=== PATIENT | male | born 1945 | race African-American/Black ===

== ENCOUNTER 2018-04-03 13:25 | Inpatient (IN) | payer MEDICARE, MEDICAID ==
[2018-04-03] MEDS ORDERED: Piperacillin/Tazobactam 4.5 GM VIAL ONE (13:52)
[2018-04-03] MEDS ORDERED: Ondansetron PF 4 MG/2 ML Vial ONE ×2 (14:02→16:52)
--- NOTE | 2018-04-03 14:29 | RAD ---
AP CHEST: History: Syncope. Date: 04-03-18 Comparison: 11-28-17 FINDINGS: AP chest obtained. There is ectasia of the aorta. The lungs are well aerated. No evidence of acute intrathoracic abnorma lity seen. No evidence of effusions seen. IMPRESSION: Unremarkable AP view chest. POS: [facility]
[2018-04-03 14:41] LABS: #Basophils 0.1 thou/uL (0.0-0.2); #Lymphocytes 1.3 thou/uL (1.20-3.40); #Monocytes 1.3 thou/uL (0.11-0.59); #Neutrophils 15.1 thou/uL (1.40-6.50); %Basophils 0.5 % (0.0-1.0); %Eosinophils 0.2 % (0.0-10.0); %Lymphocytes 7.4 % (21.0-51.0); %Monocytes 7.3 % (0.0-10.0); %Neutrophils 84.6 % (42.0-75.0); Hemoglobin 11.6 g/dL (14.0-18.0); Mean Corpuscular HGB CONC 30.7 g/dL (32.0-36.0); Mean Corpuscular Hemoglobin 29.5 pg (27.0-31.0); Mean Corpuscular Volume 96.1 fL (78.0-98.0); Mean Platelet Volume 7.7 fL (7.4-10.4); Platelet Count 283 thou/uL (130-400); Red Blood Cell (RBC) Count 3.92 mill/uL (4.70-6.10); White Blood Cell (WBC) Count 17.8 thou/uL (4.8-10.8)
[2018-04-03 15:01] LABS: Bilirubin Small (Negative); Blood, Urine Large (Negative); Clarity TURBID (Clear); Glucose, Urine (Dipstick) Negative (Negative); Leukocyte Large (Negative); Nitrite Negative (Negative); Protein, Urine (Dipstick) 100 mg/dL (Neg-Trace); Specific Gravity, Urine 1.014 (1.002-1.036); Urobilinogen 0.2 mg/dL (0.2-1.0)
[2018-04-03 15:03] LABS: Bacteria/HPF 4+ HPF (None Seen)
[2018-04-03 15:05] LABS: Pathc Cast-AUWi Flag 28.24 (0-2.49); Yeast-AUWi Flag 449.3 (0-25.0)
[2018-04-03 15:14] LABS: ALT (SGPT) 8 U/L (8-55); AST (SGOT) 19 U/L (5-34); Albumin 2.2 g/dL (3.4-4.8); Alkaline Phosphatase 142 U/L (40-150); Anion Gap 24 mmol/L (10-20); BUN (Urea Nitrogen) 108 mg/dL (8.4-25.7); Bilirubin, Total 0.4 mg/dL (0.2-1.2); Calc. Creatinine Clearance 0 mL/min (70-130); Calcium 8.4 mg/dL (7.8-10.44); Carbon Dioxide 13 mmol/L (23-31); Chloride 97 mmol/L (98-107); Estimated GFR-MDRD 8; Globulin 4.7 g/dL (2.4-3.5); Glucose 106 mg/dL (83-110); Potassium 5.3 mmol/L (3.5-5.1); Protein, Total 6.9 g/dL (5.8-8.1); Sodium 129 mmol/L (136-145)
[2018-04-03 15:16] LABS: Hyaline Casts/LPF NONE SEEN LPF (0-3 Hyaline); Other Casts/LPF None Seen LPF (0-3 Hyaline)
[2018-04-03 15:17] LABS: Yeast-All Forms None Seen HPF (None Seen)
--- NOTE | 2018-04-03 17:22 | RAD ---
PORTABLE SUPINE FRONTAL CHEST RADIOGRAPH 04/03/18 COMPARISON: Prior study on same day. HISTORY: Evaluate chest following central line placement. FINDINGS: Supine imaging is provided, limiting assessment for pneumothorax and pleural fluid. Heart and mediast inal contours are stable. As seen on prior imaging, the descending thoracic aorta is prominent. There is a left sided vascular catheter, distal tip overlying the region of the SVC. No focal consolidati on or alveolar edema. IMPRESSION: Central line in place. Stable heart and mediastinal contours. POS: [facility]
[2018-04-03] MEDS ORDERED: Vancomycin HCl 25 MG/ML Oral PO SCH (19:00)
[2018-04-03 19:06] LABS: Lactic Acid 4.1 mmol/L (0.5-2.2)
--- NOTE | 2018-04-03 20:35 | CT ---
NONCONTRAST ENHANCED CT IMAGES OF ABDOMEN AND PELVIS 04/03/18 HISTORY: Patient with nausea, vomiting. Unable to tolerate oral contrast. Evaluate abscess or perforation. Noncontrast enhanced CT images of the abdomen and pelvis is obtained. The lung bases are unremarkable. The patient has a left sided colostomy. Extensive decubitus ulcer changes seen with a defect posterior to the sacrum and coccyx with gas trac viridiana along the posterior aspect more prominent on the right. The liver and spleen are unremarkable. Pancreas unremarkable. The gallbladder has been surgically rem karine. Right adrenal lesion is seen possibly representing a mass or whether this is an adenoma or meta static disease I cannot determine on this noncontrast enhanced CT. The kidneys demonstrate no eviden ce of hydronephrosis. Mid pole right renal calculus is present. Areas of heterogeneous density seen in the infrarenal abdominal aorta possibly representing aortic di ssection, unable to be evaluated without benefit of intravenous contrast. No evidence of periaortic inflammatory change seen. No evidence of periaortic hemorrhage seen at this time. I cannot exclude occlusion of the iliac arteries and aorta. No dilated loops of small bowel or colon seen. IMPRESSION: 1. Extensive decubitus ulcer with soft tissue defect posterior to the sacrum and coccyx. 2. Findings concerning for aortic dissection. Unable to be evaluated without IV contrast. POS: [facility]
[2018-04-03] MEDS ORDERED: Sodium Chloride 0.9% 1,000 ML IV SCH ×2 (22:45)
[2018-04-03 23:46] LABS: Anion Gap 20 mmol/L (10-20); BUN (Urea Nitrogen) 92 mg/dL (8.4-25.7); CRP (Inflammatory) 14.04 mg/dL (= or < 0.5); Calc. Creatinine Clearance 14 mL/min (70-130); Calcium 7.5 mg/dL (7.8-10.44); Carbon Dioxide 17 mmol/L (23-31); Chloride 101 mmol/L (98-107); Estimated GFR-MDRD 10; Glucose 78 mg/dL (83-110); Potassium 4.5 mmol/L (3.5-5.1); Sodium 133 mmol/L (136-145)
[2018-04-04] MEDS ORDERED: Sodium Chloride 0.9% 500 ML IV SCH ×2 (01:15→14:15)
[2018-04-04] MEDS: Sodium Bicarbonate 50 MEQ in Dextrose 5 %-0.45 % NaCl 1,000 ML IV SCH ×2 (01:56→10:25)
[2018-04-04] MEDS ORDERED: VANCOMYCIN/ RENALLY ADJUST ANTIBIOTICS IVPB PRN (02:02)
[2018-04-04] MEDS ORDERED: RENALLY ADJUST ANTIBIOTICS IVPB PRN (02:03)
[2018-04-04] MEDS ORDERED: Ondansetron PF 4 MG/2 ML Vial IVP PRN (02:04)
[2018-04-04] MEDS ORDERED: Ondansetron ODT 4 MG TAB PO PRN (02:04)
[2018-04-04] MEDS ORDERED: Piperacillin/Tazobactam 3.375 GM in Sodium Chloride 0.9% 100 ML IVPB SCH (02:15)
[2018-04-04] MEDS: cefTRIAXone\\ROCEPHIN 1 GM in Sodium Chloride 0.9% 100 ML IVPB SCH (02:58)
--- NOTE | 2018-04-04 03:13 | HP ---
PRIMARY CARE DOCTOR: Dr. Ngo. CHIEF CONCERN: Nausea, vomiting with generalized weakness. HISTORY OF PRESENT ILLNESS: The patient is a 72-year-old male with chronic deconditioning, sacral ulcers, hypertension, and colostomy was brought in by EMS due to above complaints. The patient chronic pressure ulcer over the sacrum , which is followed by wound care at home. He also has wound VAC at home. He had abdominal surgery in [place], [place] and has a colostomy. He is unable to provide further details. He has not been eating and drinking well over the last few months. He denies increased output through the colostomy bag. No fever or chills reported. He has several episodes of vomiting and felt generally weak for which EMS was called. In the emergency room, his stool was positive for C diff. He was started on oral vancomycin. His blood pressure per EMS was 67/40. The home health care reported EMS that he had dark emesis. His workup in the emergency room showed acute kidney injury with lactic acidosis. Initial vital signs showed temperature 98.5, respirations 16, pulse of 93 with a blood pressure of 93/70 with O2 saturation of 100% on room air. He received vancomycin and Zosyn in the emergency room. Blood cultures was sent. PAST MEDICAL HISTORY: 1. Hypertension. 2. Chronic bedridden status. The patient is however able to sit on a wheelchair. He also gets physical therapy at home per patient report. 3. Hypertension. 4. Status post colostomy. 5. Degenerative joint disease. 6. Benign prostatic hypertrophy. 7. Obesity. 8. Decubitus ulcer. PAST SURGICAL HISTORY: 1. Laparoscopic cholecystectomy for gallstone pancreatitis. 2. Colostomy. ALLERGIES: NO KNOWN DRUG ALLERGIES. CURRENT HOME MEDICATIONS: The patient is unable to recall any of his home medication. We will try to obtain from the family. SOCIAL HISTORY: The patient currently lives at home. He has home health care. He is a former smoker. He quit smoking last year. No drug use reported. He makes his own decision with the help of his family. He is full code. FAMILY HISTORY: Negative for any inheritable diseases. REVIEW OF SYSTEMS: All other review of systems was reviewed and were found. PHYSICAL EXAMINATION: VITAL SIGNS: As discussed above. GENERAL: A 72-year-old male, in no apparent distress. Feels slightly better with IV fluids. HEENT: Head atraumatic, normocephalic. Sclerae anicteric. Dry mucous membranes. No oral lesion. NECK: Supple. No JVD appreciated. Central line noted. LUNGS: Showed diminished air entry at bilateral bases with few rales at bases. No significant wheezing or rhonchi noted. HEART: S1 and S2 present. Regular rate and rhythm 2/6 systolic murmur over the mitral area. ABDOMEN: Soft. Colostomy noted. Bowel sounds present. No rebound or guarding. No costovertebral angle tenderness. EXTREMITIES: 1+ edema in bilateral lower extremity. No calf tenderness. SKIN: Warm and dry. Approximately 8 x 8 cm deep pressure ulcer over the sacrum region. LYMPH NODE: No palpable lymph nodes in the neck. NEUROLOGY: As discussed above. PSYCHIATRY: Alert, awake, and oriented x3. LABORATORY FINDINGS: WBC 17.8 with hemoglobin 11.6, hematocrit 37.7 with platelet 283. Chemistry showed sodium 129, potassium 5.3, chloride 97, bicarb 13, BUN 108, creatinine 7.9. Lactic acid 5.5. CRP 14.4, cortisol was normal. Albumin 2.2. Urinalysis showed greater than 50 wbc's with 4+ bacteria. IMAGIN. EKG by my review showed sinus rhythm with lot of artifact. 2. CT scan of the abdomen and pelvis showed extensive decubitus ulcer with questionable aortic dissection. Please note that the CT scan was done without contrast due to acute kidney injury. 3. Chest x-ray by my review was negative for infiltrate. IMPRESSION: 1. Sepsis with acute organ dysfunction. 2. Clostridium difficile colitis. Urinary tract infection. 3. Physical deconditioning. 4. Benign prostatic hypertrophy. 5. Moderate protein-calorie malnutrition. 6. Metabolic acidosis secondary to renal failure. 7. Acute kidney injury secondary to dehydration and poor oral intake. 8. Lactic acidosis. 9. Elevated inflammatory markers. 10. Multiple electrolyte abnormalities including hyponatremia, hyperkalemia secondary to renal failure. 11. Chronic anemia. 12. Obesity with a body mass index of 31.4. 13. Concern for aortic dissection. Please note, the patient had a CT scan in November of this year that was positive for aortic dissection dissection. He was transferred to [facility]. PLAN: 1. The patient will be monitored on the telemetry unit. 2. We will continue IV hydration. 3. We will add bicarbonate to IV fluids. 4. We will get ultrasound of the aorta. We will hold antiplatelet/ anticoagulants. 5. Recheck labs in a.m. 6. We will repeat lactic acid in a.m. 7. Hold nephrotoxic medications. 8. Continue oral vancomycin. 9. Continue empiric antibiotics. 10. Await cultures. 11. Plan was discussed with the patient, he stated understanding. Job ID: [id number] MTDD
[2018-04-04] MEDS: Vancomycin HCl 25 MG/ML Oral PO SCH ×4 (03:30→19:36)
[2018-04-04] MEDS: metroNIDAZOLE 500 MG in Premix Bag 1 BAG IVPB SCH ×3 (05:54→22:50)
[2018-04-04 06:31] LABS: #Lymphocytes 1.5 thou/uL (1.20-3.40); #Monocytes 1.4 thou/uL (0.11-0.59); #Neutrophils 11.4 thou/uL (1.40-6.50); %Basophils 0.2 % (0.0-1.0); %Eosinophils 0.2 % (0.0-10.0); %Lymphocytes 10.6 % (21.0-51.0); %Monocytes 9.6 % (0.0-10.0); %Neutrophils 79.5 % (42.0-75.0); Hemoglobin 9.7 g/dL (14.0-18.0); Mean Corpuscular HGB CONC 30.1 g/dL (32.0-36.0); Mean Corpuscular Hemoglobin 29.3 pg (27.0-31.0); Mean Corpuscular Volume 97.4 fL (78.0-98.0); Mean Platelet Volume 7.7 fL (7.4-10.4); Platelet Count 221 thou/uL (130-400); RBC Distribution Width 16.9 % (11.5-14.5); Red Blood Cell (RBC) Count 3.29 mill/uL (4.70-6.10); White Blood Cell (WBC) Count 14.3 thou/uL (4.8-10.8)
[2018-04-04 06:50] LABS: Lactic Acid 2.5 mmol/L (0.5-2.2)
[2018-04-04 06:54] LABS: Anion Gap 17 mmol/L (10-20); BUN (Urea Nitrogen) 87 mg/dL (8.4-25.7); Calc. Creatinine Clearance 16 mL/min (70-130); Carbon Dioxide 17 mmol/L (23-31); Chloride 106 mmol/L (98-107); Estimated GFR-MDRD 11; Glucose 77 mg/dL (83-110); Potassium 4.6 mmol/L (3.5-5.1); Sodium 135 mmol/L (136-145)
[2018-04-04 07:29] LABS: Folate (Folic Acid) 7.8 ng/mL (7.0-31.4)
--- NOTE | 2018-04-04 08:06 | ULT ---
ABDOMINAL AORTIC ULTRASOUND: HISTORY: Followup aortic dissection on noncontrast CT scan, 04/03/2018. COMPARISON: Aortic dissection protocol, 11/28/2017. FINDINGS: The abdominal aortic dissection is demonstrated on ultrasound with flow in both primary and secondary lumens. Maximal outer of diameter 2.9 cm. The dissection appears to extend into the proximal left common iliac artery. Much of the abdomen is obscured by gas. No abscess or abnormal fluid collectio n. IMPRESSION: Redemonstration of abdominal aortic dissection. No significant change from prior 11/28/2017 CT angio. POS: [facility]
[2018-04-04] MEDS ORDERED: Sodium Bicarbonate 50 MEQ in Dextrose 5 %-0.45 % NaCl 1,000 ML IV SCH (09:15)
[2018-04-04] MEDS: Folic Acid 1 MG TAB PO SCH (10:21)
[2018-04-04] MEDS: Famotidine 20 MG TAB PO SCH (10:21)
[2018-04-04] MEDS: Saccharomyces boulardii 250 MG CAP PO SCH (10:21)
[2018-04-04] MEDS: Multivit, Therapeutic 1 TAB PO SCH (10:50)
--- NOTE | 2018-04-04 14:57 | PDOC.PN ---
- Subjective Encounter Start Date: 04/04/18 Encounter Start Time: 09:00 Subjective: pt up in bed no complains - Objective Resuscitation Status - Order Detail: 04/04/18 02:04 Resuscitation Status Routine Resuscitation Status: FULL: Full Resuscitation Vital Signs & Weight: Vital Signs (12 hours) Temp Pulse Pulse Pulse Pulse Resp BP 04/04/18 14:20 97.4 F L 111 H 22 H 04/04/18 13:45 77 80 76 102/46 L 04/04/18 11:20 98 20 04/04/18 10:55 98.9 F 101 H 20 04/04/18 08:17 84 77 85/51 L 04/04/18 08:05 97.6 F 81 18 04/04/18 03:14 80 18 BP BP BP Pulse Ox 04/04/18 14:20 74/35 L 95 04/04/18 13:45 97/51 L 74/35 L 04/04/18 11:20 102/45 L 95 04/04/18 10:55 99/52 L 99 04/04/18 08:17 89/51 L 04/04/18 08:05 82/45 L 95 04/04/18 03:14 86/48 L 97 Weight Weight 225 lb 1.6 oz I&O: 04/03/18 04/04/18 04/05/18 06:59 06:59 06:59 Intake Total 2550 Output Total 250 Balance 2300 Result Diagrams: 04/04/18 05:20 04/04/18 05:20 Additional Labs: Accuchecks 04/04/18 10:52 POC Glucose 88 Phys Exam - Physical Examination Respiratory: no wheezing, no rales, no rhonchi, wheezing present, clear to auscultation bilateral Cardiovascular: RRR, no significant murmur, no rub, gallop, irregular Gastrointestinal: soft, positive bowel sounds colostomy Dx/Plan (1) Clostridium difficile infection Code(s): A49.8 - OTHER BACTERIAL INFECTIONS OF UNSPECIFIED SITE Status: Acute (2) UTI (urinary tract infection) Status: Acute (3) USHA (acute kidney injury) Code(s): N17.9 - ACUTE KIDNEY FAILURE, UNSPECIFIED Status: Acute (4) Metabolic acidosis Code(s): E87.2 - ACIDOSIS Status: Acute (5) Aortic dissection Code(s): I71.00 - DISSECTION OF UNSPECIFIED SITE OF AORTA Status: Acute - Plan pt received 3L of fluids still has hypotension -: will add solucortef and continue iv abx and po vanco -: pt's output from colostomy is not much -: creatinine improving with hydration -: spoke with pulmonary for ccu transfer and nephrology for usha * . also spoke with CV surgery since family unaware if pt got surgery for his aortic dissection. unable to do ct with contrast due to usha. code status discussed with pt he wants to be full code for now. pt has a large sacral wound and has a vac. Review of Systems - Review of Systems Respiratory: negative: Cough, Dry, Shortness of Breath, Hemoptysis, SOB with Excertion, Pleuritic Pain, Sputum, Wheezing Cardiovascular: negative: chest pain, palpitations, orthopnea, paroxysmal nocturnal dyspnea, edema, light headedness, other Gastrointestinal: negative: Nausea, Vomiting, Abdominal Pain, Diarrhea, Constipation, Melena, Hematochezia, Other - Medications/Allergies Allergies/Adverse Reactions: Allergies Allergy/AdvReac Type Severity Reaction Status Date / Time No Known Drug Allergies Allergy Verified 10/02/13 02:54 Medications: Current Medications Acetaminophen (Tylenol) 650 mg PO Q4H PRN PRN Reason: Headache/Fever/Mild Pain (1-3) Famotidine (Pepcid) 20 mg PO QAM [facility] Last Admin: 04/04/18 10:21 Dose: 20 mg Folic Acid (Folvite) 1 mg PO DAILY [facility] Last Admin: 04/04/18 10:21 Dose: 1 mg Hydrocortisone Sodium Succinate (Solu-Cortef) 100 mg IVP Q6H [facility] Vancomycin HCl 1 gm/ Device 200 mls @ 200 mls/hr IVPB .PENDING LEVEL@1600 [facility] Metronidazole 500 mg/ Device 100 mls @ 100 mls/hr IVPB Q8HR [facility] Last Admin: 04/04/18 13:47 Dose: 100 mls Ceftriaxone Sodium 1 gm/ (Sodium Chloride) 100 mls @ 200 mls/hr IVPB Q24HR [facility] Last Admin: 04/04/18 02:58 Dose: 100 mls Sodium Bicarbonate 50 meq/ (Dextrose/Sodium Chloride) 1,100 mls @ 150 mls/hr IV .Q7H20M [facility] Last Admin: 04/04/18 10:25 Dose: 1,100 mls Miscellaneous Medication (Pharmacy To Dose) 1 each IVPB PRN PRN PRN Reason: Pharmacy to dose Miscellaneous Medication (Pharmacy To Dose) 1 each IVPB PRN PRN PRN Reason: Pharmacy to dose Multivitamins (Theragran) 1 tab PO DAILY [facility] Last Admin: 04/04/18 10:50 Dose: 1 tab Ondansetron HCl (Zofran Odt) 4 mg PO Q6H PRN PRN Reason: Nausea/Vomiting Last Admin: 04/04/18 10:50 Dose: 4 mg Ondansetron HCl (Zofran) 4 mg IVP Q6H PRN PRN Reason: Nausea/Vomiting Saccharomyces Boulardii (Florastor) 250 mg PO DAILY [facility] Last Admin: 04/04/18 10:21 Dose: 250 mg Sodium Chloride (Flush - Normal Saline) 10 ml IVF Q12HR [facility] Last Admin: 04/04/18 10:22 Dose: 10 ml Sodium Chloride (Flush - Normal Saline) 10 ml IVF PRN PRN PRN Reason: Saline Flush Thiamine HCl (Thiamine) 100 mg PO DAILY [facility] Last Admin: 04/04/18 10:21 Dose: 100 mg Vancomycin HCl (First Vancomycin) 250 mg PO Q6H [facility]
[2018-04-04] MEDS: Hydrocortisone Sod Succ/PF 100 mg/2 ml Vial IVP SCH ×2 (15:10→20:37)
--- NOTE | 2018-04-04 15:48 | CON ---
DATE OF CONSULTATION: 04/04/2018 REASON FOR CONSULTATION: Nausea, vomiting, and Clostridium difficile. HISTORY OF PRESENT ILLNESS: Jayson Christianson is a 72-year-old gentleman, who was admitted to the hospital yesterday with acute kidney injury and sepsis. He has a history of chronic deconditioning and sacral ulcers as well as chronic aortic dissection evidently in [place] 3 months ago. He underwent colostomy to divert the fecal stream away from his sacral decubitus ulcers. He says that really ever since that time, he has not been eating or drinking well. He has chronic nausea and fairly frequent episodes of vomiting. He really does not have any increased output through the colostomy bag or any significant abdominal pain other than the vomiting itself. Upon presentation, he was found to be hypotensive with a lactic acidosis and acute kidney injury. He started receiving broad-spectrum antibiotics. At this point, urine cultures are growing gram-negative rods. Blood cultures showed no growth to date, and stool studies showed positive C difficile antigen and toxin. PAST MEDICAL HISTORY: 1. Hypertension. 2. Chronic deconditioning. 3. Sacral decubitus ulcers. 4. Colostomy performed in December 2017 in [place], to divert fecal stream from decubitus ulcers. 5. Degenerative joint disease. 6. BPH. 7. Obesity. 8. Laparoscopic cholecystectomy. ALLERGIES: NO KNOWN DRUG ALLERGIES. HOME MEDICATIONS: Unknown. Inpatient medications; 1. IV ceftriaxone. 2. IV metronidazole. 3. Zofran p.r.n. 4. IV vancomycin, vancomycin 125 mg p.o. every 6 hours. SOCIAL HISTORY: The patient lives at home with Home Health care. He is a former smoker having quit last year. No drug use. FAMILY HISTORY: Noncontributory. REVIEW OF SYSTEMS: Full review of systems including constitutional, head, eyes, ears, nose, throat, GI, , cardiovascular, respiratory, musculoskeletal, neurologic systems is negative except as noted in the HPI. PHYSICAL EXAMINATION: VITAL SIGNS: Temperature 97.5, blood pressure 86/48, pulse 100, 97% oxygen saturation on room air. GENERAL: Chronically ill 72-year-old man, lying in bed comfortably, in no distress. SKIN: He is a bit pale. No jaundice. Sacral decubitus ulcers are well documented elsewhere and I did not examine those today. EYES: No scleral icterus. Extraocular movements intact. ENT: Mucous membranes are moist. No oral lesions. LYMPH: No submandibular or supraclavicular lymphadenopathy. THYROID: Nontender to palpation. HEART: Regular rate and rhythm. LUNGS: Clear to auscultation bilaterally. ABDOMEN: Soft. Bowel sounds are present. He has a left lower quadrant colostomy bag in place. The stool in the bag is liquid and normal brown appearing. Nontender to palpation. EXTREMITIES: Pretibial edema bilaterally. LABORATORY STUDIES: Hemoglobin 9.7, WBC 14.3, platelets 221. Sodium 135, potassium 4.6, BUN 87, creatinine 6.28. Lactic acid initially 4.1, now down to 2.5. Glucose 77, calcium 7.0, vitamin B12 is 921, folic acid 7.8, cortisol 16.9, CRP elevated to 14.04. Urinalysis shows greater than 50 wbc's. Urine culture growing gram-negative rods. Blood culture showed no growth to date. Influenza swab negative. Stool C difficile antigen and toxin both positive. IMAGING STUDIES: CT of the abdomen and pelvis demonstrates no dilated loops of small bowel or colon. He has a left-sided colostomy. Liver, spleen, and pancreas are unremarkable. Gallbladder removed. There is a right adrenal lesion. There is heterogeneous density in the infrarenal abdominal aorta representing aortic dissection. Aortic ultrasound from this morning demonstrates abdominal aortic dissection with no significant change from last November. ASSESSMENT AND PLAN: 1. Clostridium difficile colitis. The patient was started on oral vancomycin. Hopefully, he will be able to tolerate taking the medicine p.o. If he is not successful with this over the next day, then we would need to add vancomycin enemas given through his colostomy 4 times daily. Duration of treatment should be 14 days. I am not really sure we can blame the patient's overall septic picture on the C difficile, as the diarrhea portion of this has really been minimal. 2. Nausea and vomiting. 3. Acute kidney injury. 4. Urinary tract infection. The precise etiology of this nausea and vomiting are not exactly clear. He is quite ill from this urinary infection and acute kidney injury. Continue with supportive measures for now. If no improvement in the nausea over the next couple of days with antibiotics and supportive therapy, we could consider diagnostic EGD. Note that he had an essentially unremarkable EGD back in 2013, showing only some benign gastric polyps. Thank you for the consultation. Please call anytime with questions or concerns. Job ID: [id number]
[2018-04-04 16:23] LABS: Vancomycin, Random 8.6 ug/mL (See Comment)
[2018-04-04 16:25] LABS: Anion Gap 13 mmol/L (10-20); BUN (Urea Nitrogen) 82 mg/dL (8.4-25.7); Calc. Creatinine Clearance 18 mL/min (70-130); Calcium 7.2 mg/dL (7.8-10.44); Carbon Dioxide 21 mmol/L (23-31); Chloride 106 mmol/L (98-107); Estimated GFR-MDRD 13; Glucose 101 mg/dL (83-110); Potassium 3.8 mmol/L (3.5-5.1); Sodium 136 mmol/L (136-145)
--- NOTE | 2018-04-04 16:46 | CON ---
DATE OF CONSULTATION: 04/04/2018 CHIEF COMPLAINT: Nausea and vomiting. HISTORY OF PRESENT ILLNESS: The patient is a 72-year-old black man, admitted last night with nausea and vomiting. His systolic blood pressures were in the upper 60s in transport by EMS, but were in the 80 to 100 range in the emergency room. His stool is positive for C. difficile toxin and urine culture overnight has grown greater than 100,000 colony-forming units/mL of gram-negative bacillus. His blood cultures are no growth so far. His abdominal pain and nausea have resolved. His blood pressures are still running in the 80 to 100 range after having received about 2.5 L of IV fluid since arrival. I was asked by the hospitalist rounding on the patient today to address the issue of his aortic dissection, which he had in November of this past year, the management of which was handled at [facility] in [place]. PAST MEDICAL HISTORY: The patient's past medical history significant for hypertension. Based upon the absence of scars or radiopaque hardware, I am left to presume that he had medical management of his type 3 dissection and in speaking with the patient, he says that in December, he underwent creation of a left lower quadrant colostomy while in [place], which I presume represents a diverting colostomy to assist in the treatment of a sacral decubitus that he developed during his period of extreme deconditioning. MEDICATIONS: The patient's home medications are listed as; 1. Lopressor. 2. Norvasc. 3. Hydralazine. 4. Flomax. 5. Protonix. 6. Lasix. 7. Aspirin. He is currently on; 1. Rocephin. 2. Flagyl. 3. IV vancomycin and oral vancomycin. His antihypertensives are currently on hold. REVIEW OF SYSTEMS: Negative for any back pain. PHYSICAL EXAMINATION: GENERAL: He is an obese, debilitated appearing man, in no distress. VITAL SIGNS: Temperature is 98.9, heart rate is 101, blood pressure is 99/52, and room air O2 saturations are 99%. LUNGS: Clear breath sounds. HEART: Regular rate and rhythm. ABDOMEN: Soft and nontender. He has a left lower quadrant colostomy. He is difficult to appreciate radial pulses, but his femoral pulses are easily palpable. He has no scars on his left chest. LABORATORY DATA: His chest x-ray shows no radiopaque devices consistent with endovascular repair of his aorta. His CT scan does not show any hardware either, it is a noncontrasted CT. The suprarenal aorta is similar size as it was in November at around 3.2 or 3.3 cm at the level of the renals. It is probably a little bit larger now at around 3.9 cm as opposed to about 3.5 in November. IMPRESSION AND RECOMMENDATIONS: The patient is in acute renal failure, making the CT scan useless for evaluating for the patency of his false lumen. It is probably a moot point at this stage; however, there is no evidence of hemorrhage around the aorta. He is having no pain and his aortic size is far below, the threshold to warrant repair to avoid the risk of rupture due to aneurysmal dilatation. The mainstay of management of these patient is medical management. Obviously, his blood pressure now is probably lower than what it normally runs, but he seems to be tolerating it well. At this point, I do not think that there is any need to pursue this any further and we will defer his followup to his aortic team in [place]. Job ID: [id number]
[2018-04-04] MEDS ORDERED: Vancomycin HCl 1 GM in Premix Bag 1 BAG IVPB SCH (17:00)
[2018-04-04 18:00] LABS: Blood, Urine Large (Negative); Glucose, Urine (Dipstick) Negative (Negative); Leukocyte Moderate (Negative); Nitrite Positive (Negative); Protein, Urine (Dipstick) 30 mg/dL (Neg-Trace); Urobilinogen 0.2 mg/dL (0.2-1.0); pH, Urine 5.5 (5.0-9.0)
[2018-04-04 18:04] LABS: Clarity Opaque (Clear)
[2018-04-04 18:12] LABS: Bilirubin Negative (Negative); Specific Gravity, Urine 1.014 (1.002-1.036)
[2018-04-04 18:17] LABS: Bacteria/HPF 1+ HPF (None Seen); Crystals/HPF 1+ CA OXALATE HPF (Negative); Hyaline Casts/LPF NONE SEEN LPF (0-3 Hyaline); Squamous Epithelial None Seen HPF (0-3)
[2018-04-04] MEDS: Sodium Chloride 0.9% 1,000 ML IV SCH (19:34)
[2018-04-04] MEDS: Vancomycin HCl 1 GM in Premix Bag 1 BAG IVPB SCH (20:37)
--- NOTE | 2018-04-04 21:54 | CON ---
DATE OF CONSULTATION: 04/04/2018 TIME SPENT: This consult encompassed 70 minutes time, of that time, greater than 50% was spent with the patient and/or in the patient's unit in the hospital. REASON FOR CONSULTATION: Low blood pressure. HISTORY OF PRESENT ILLNESS: This is a 72-year-old male, who comes into the hospital, and has not been eating or drinking well over several weeks. His family says he has had nausea and vomiting. He has an extensive medical history. He has had a colostomy in the past. Apparently, his current colostomy fluid is positive for C diff toxin and antigen. He has also had an aortic dissection in the past. His blood pressure measured low today and the hospitalist is worried that he needs to be at a higher level of care. PAST MEDICAL HISTORY: 1. Hypertension. 2. Aortic dissection. 3. Chronic bedridden status. 4. Colostomy. 5. Degenerative joint disease. 6. Prostatic hypertrophy. 7. Obesity. 8. Decubitus ulcer. PAST SURGICAL HISTORY: 1. Laparoscopic cholecystectomy. 2. Colostomy. MEDICATIONS: Prior to admission, these are not confirmed, but the chart states that he was taking, 1. Hydralazine. 2. Flomax. 3. Protonix. 4. Lopressor. 5. Lasix. 6. Colace. 7. Aspirin. 8. Norvasc. FAMILY MEDICAL HISTORY: Unremarkable. SOCIAL HISTORY: Lives at home. Cared for by his family. Quit smoking about a year ago. Does not consume alcohol. Does not use illicit drugs. REVIEW OF SYSTEMS: Remarkable for decreased appetite, nausea, vomiting. No fever, chills, chest pain, hemoptysis, melena, hematochezia, hematuria, dysuria. ALLERGIES: NONE. PHYSICAL EXAMINATION: VITAL SIGNS: Temperature 97.4, pulse 111, respirations 20, O2 sat 95%, and his blood pressure was measured 110/55 in his left arm and 74/35 in his right arm. GENERAL: He is awake and alert. Does not appear to be in any distress. HEENT: Pupils react. Sclerae anicteric. Oropharynx clear. NECK: No adenopathy or JVD. CHEST: Clear without wheezing or rhonchi. CARDIAC: S1 and S2 regular. ABDOMEN: Colostomy in left lower quadrant, has brown fluid. Abdomen is nontender. EXTREMITIES: No clubbing, cyanosis, or edema. LABORATORY DATA: White blood cell count 14.3, hematocrit 32.1, and platelet count 221. Sodium 135, potassium 4.6, chloride 106, CO2 of 17, BUN 87, creatinine 6.2, glucose 77, cortisol 16.9, lactate 2.5. His abdominal and pelvic CT showed an extensive decubitus ulcer in the sacrum and coccyx area. There is finding of old aortic dissection. Chest x-ray shows no mass, effusion, or infiltrate. He has a left IJ line in place. Micro showed a positive C diff. ASSESSMENT: 1. Clostridium difficile colitis. 2. Profound dehydration. 3. Azotemia. 4. Differential blood pressures between arms may be secondary to previous aortic dissection and exacerbated by current dehydrated status. 5. Doubt over at septic shock. RECOMMENDATION: 1. I okay transfer to the ICU for more aggressive blood pressure and fluid management. 2. I agree with empiric hydrocortisone given the inappropriately low cortisol level. 3. I would not institute vasopressors at this time. 4. Management of C diff per the hospitalist group. Job ID: [id number]
[2018-04-04] MEDS ORDERED: Sodium Chloride 0.9% 1,000 ML IV SCH (22:30)
--- NOTE | 2018-04-05 00:42 | CON ---
DATE OF CONSULTATION: 04/04/2018 CONSULTING PHYSICIAN: Dr. Lyle. REASON FOR CONSULTATION: Acute kidney injury. REASON FOR ADMISSION: Nausea and vomiting. HISTORY OF PRESENT ILLNESS: This is a 72-year-old male with history of hypertension, BPH, obesity, came to the hospital with above complaints and was found to have elevated creatinine. His creatinine was 7.9 on admission and with IV hydration, this evening was 5.4. The patient is feeling better. He is feeling dry. He was not able to eat anything before admission. PAST MEDICAL HISTORY: Positive for hypertension, DJD, BPH, obesity, and decubitus. PAST SURGICAL HISTORY: Positive for cholecystectomy and colostomy. HOME MEDICATIONS: 1. Hydralazine. 2. Flomax. 3. Protonix. 4. Lopressor. 5. Lasix. 6. Colace. 7. Aspirin. 8. Norvasc. ALLERGIES: NO KNOWN DRUG ALLERGIES. SOCIAL HISTORY: No smoking, alcohol, or illicit drug use. FAMILY HISTORY: No history of any kidney disease. REVIEW OF SYSTEMS: CONSTITUTIONAL: Negative for weight loss or gain, ability to conduct usual activities. SKIN: Negative for rash, itching. EYES: Negative for double vision, pain. ENT/MOUTH: Negative for nose bleeding, neck stiffness, pain, tenderness. CARDIOVASCULAR: Negative for palpitations, dyspnea on exertion, orthopnea. RESPIRATORY: Negative for shortness of breath, wheezing, cough, hemoptysis, fever or night sweats. GASTROINTESTINAL: Negative for poor appetite, abdominal pain, heartburn, nausea , vomiting, constipation, or diarrhea. GENITOURINARY: Negative for urgency, frequency, dysuria, nocturia. MUSCULOSKELETAL: Negative for pain, swelling. NEUROLOGIC/PSYCHIATRIC: Negative for anxiety, depression. ALLERGY/IMMUNOLOGIC: Negative for skin rash, bleeding tendency. PHYSICAL EXAMINATION: GENERAL: Well-built male, in no apparent distress. VITAL SIGNS: noted HEENT: Atraumatic and normocephalic. Oral mucosa is moist. NECK: Supple. CARDIOVASCULAR: S1 and S2 heard. Rate and rhythm regular. RESPIRATORY: Clear to auscultation. GI - abd soft DERMATOLOGIC: No skin rash. NEUROLOGIC: Alert and awake and oriented x3. PSYCHIATRIC: Mood and affect normal. LABORATORY DATA: Hemoglobin 9.7. Potassium 3.8, bicarb 21, BUN 82, creatinine 5.4. ASSESSMENT AND PLAN: 1. Acute kidney injury, most likely volume depletion, continue hydration. Avoid nephrotoxins. 2. Acidosis, better with bicarb drip. We will change it to NS. 3. Hyponatremia, better. 4. Anemia. 5. Edema, controlled. 6. Hypotension, monitor closely and boluses as tolerated. 7. Pyuria, rule out any infection. Continue supportive care. I have written for nephrotoxins and I will resume dialysis. If not getting better, we will follow. Thank you for the consult. Job ID: [id number] [facility]Jeff
[2018-04-05] MEDS: Sodium Chloride 0.9% 1,000 ML IV SCH ×2 (03:30→12:02)
[2018-04-05] MEDS: cefTRIAXone\\ROCEPHIN 1 GM in Sodium Chloride 0.9% 100 ML IVPB SCH (03:31)
[2018-04-05] MEDS: Vancomycin HCl 25 MG/ML Oral PO SCH ×4 (03:31→21:34)
[2018-04-05] MEDS: Hydrocortisone Sod Succ/PF 100 mg/2 ml Vial IVP SCH ×4 (03:31→21:33)
[2018-04-05 04:22] LABS: #Lymphocytes 0.7 thou/uL (1.20-3.40); #Monocytes 0.2 thou/uL (0.11-0.59); #Neutrophils 6.4 thou/uL (1.40-6.50); %Basophils 0.5 % (0.0-1.0); %Eosinophils 0.3 % (0.0-10.0); %Lymphocytes 9.6 % (21.0-51.0); %Monocytes 2.1 % (0.0-10.0); %Neutrophils 87.6 % (42.0-75.0); Hemoglobin 8.8 g/dL (14.0-18.0); Mean Corpuscular Hemoglobin 29.6 pg (27.0-31.0); Mean Corpuscular Volume 95.4 fL (78.0-98.0); Mean Platelet Volume 7.4 fL (7.4-10.4); Platelet Count 233 thou/uL (130-400); RBC Distribution Width 16.8 % (11.5-14.5); Red Blood Cell (RBC) Count 2.98 mill/uL (4.70-6.10); White Blood Cell (WBC) Count 7.3 thou/uL (4.8-10.8)
[2018-04-05 04:40] LABS: Anion Gap 14 mmol/L (10-20); BUN (Urea Nitrogen) 79 mg/dL (8.4-25.7); Calc. Creatinine Clearance 22 mL/min (70-130); Carbon Dioxide 17 mmol/L (23-31); Chloride 106 mmol/L (98-107); Estimated GFR-MDRD 16; Glucose 106 mg/dL (83-110); Potassium 3.3 mmol/L (3.5-5.1); Sodium 134 mmol/L (136-145)
[2018-04-05] MEDS: metroNIDAZOLE 500 MG in Premix Bag 1 BAG IVPB SCH ×3 (05:34→21:34)
--- NOTE | 2018-04-05 08:03 | PRG ---
DATE OF SERVICE: 04/05/2018 OBJECTIVE: He feels much better this morning. He is complaining some thrush in his mouth. SUBJECTIVE: VITAL SIGNS: On exam, his temperature is 97.9, blood pressure is 114/56, respiratory rate 20, pulse 92, O2 saturation 100%. Intake 3665, output 930. HEENT: Unremarkable, except for some thrush on his tongue. NECK: No JVD. LUNGS: Clear to auscultation. CARDIAC: S1, S2, regular without murmur. ABDOMEN: Soft nontender. Brown stool in colostomy bag. EXTREMITIES: No clubbing, cyanosis, or edema. LABORATORY DATA: White blood cell count 7.3, hemoglobin 8.8, hematocrit 28.4, and platelet count 233. Sodium 134, potassium 3.3, chloride 106, CO2 of 17, BUN 79, creatinine 4.4, glucose 98. Cultures are growing out Klebsiella from the urine and coag-negative staph from 1 of 2 blood cultures. ASSESSMENT: 1. Clostridium difficile colitis. 2. Oral thrush. 3. Azotemia, which is correcting with hydration. 4. Previous aortic dissection. 5. Doubt he is in overt septic shock. 6. Differential blood pressures secondary to previous aortic dissection. PLAN: I would continue with his current hydration, electrolyte replacement, and treatment of C. difficile colitis. Additionally, he will receive treatment for the Klebsiella in his urine and treatment of the oral thrush. He may be able to go out to the floor later this afternoon. Job ID: [id number]
[2018-04-05] MEDS: Folic Acid 1 MG TAB PO SCH (09:20)
[2018-04-05] MEDS: Nystatin 500,000 UNITS/5 ML UDCUP PO SCH ×4 (09:20→21:34)
[2018-04-05] MEDS: Saccharomyces boulardii 250 MG CAP PO SCH (09:20)
[2018-04-05] MEDS: Famotidine 20 MG TAB PO SCH (09:21)
[2018-04-05] MEDS: Multivit, Therapeutic 1 TAB PO SCH (09:21)
--- NOTE | 2018-04-05 14:23 | PRG ---
DATE OF SERVICE: 04/05/2018 SUBJECTIVE: Mr. Christianson says he is feeling a lot better today. His renal function is improving. Colostomy bag still functioning well with liquid brown stool in the bag. Importantly, he says he is not having any abdominal pain or nausea. He has been tolerating his liquid diet very well with no issues. OBJECTIVE: VITAL SIGNS: Temperature 98.1, pulse 73, blood pressure 112/53, 96% oxygen saturation on room air. GENERAL: No acute distress. HEART: Regular rate and rhythm. LUNGS: Clear to auscultation bilaterally. ABDOMEN: Bowel sounds present. Soft and nontender to palpation. Left-sided colostomy bag looks good with liquid brown stool in the bag. EXTREMITIES: 1+ lower extremity edema. LABORATORY STUDIES: WBC 7.3, hemoglobin 8.8, platelets 233. Sodium 134, potassium 3.3, BUN 79, creatinine 4.42. Blood culture growing out coagulase-negative Staph. Urine culture growing out Klebsiella pneumoniae. Repeat urine culture also growing gram-negative rods. ASSESSMENT AND PLAN: 1. Clostridium difficile colitis. Continue treatment with oral vancomycin. He is tolerating the oral medication. Continue treatment for a total of 14 days. 2. Nausea and vomiting, improved. Symptoms seem to have significantly improved with rehydration and treatment of underlying infections. I think his diet can be further advanced as tolerated. Please call back with any further questions or concerns from a GI standpoint. Job ID: [id number]
--- NOTE | 2018-04-05 15:38 | PRG ---
DATE OF SERVICE: 04/05/2018 SUBJECTIVE: Patient was seen and examined at bedside and overnight events noted. Patient denies any shortness of breath or chest pain or palpitation. No history of nausea or vomiting or diarrhea or fever or chills or cramps. OBJECTIVE: GENERAL: This is a well-built male, in no apparent distress. VITAL SIGNS: Temperature 98.1. Pulse 76. Respiratory rate 20. Blood pressure 104/63. HEENT: Atraumatic, normocephalic. Oral mucosa is moist NECK: Supple. CARDIOVASCULAR: S1, S2 heard. Rate and rhythm regular. RESPIRATORY: Clear to auscultation. GASTROINTESTINAL: Abdomen is soft. MUSCULOSKELETAL: No tenderness. No edema. DERMATOLOGIC: No skin rash. NEUROLOGIC: Alert and awake and oriented X3. No focal neurologic deficits. Moving all the extremities. PSYCHIATRIC: Mood and affect normal. LABORATORY DATA: Potassium 3.3, BUN is 79, and creatinine is 4.4. ASSESSMENT AND PLAN: 1. Acute kidney injury on chronic kidney disease, most likely volume depletion, getting better. Continue hydration. 2. Hypokalemia, replaced. 3. Hyponatremia. 4. Anemia. 5. Edema. 6. Hypotension. 7. Pyuria. Rule out infection. Follow up cultures. Renal function is getting better. Avoid nephrotoxins. We will follow. Job ID: [id number]
--- NOTE | 2018-04-05 17:22 | PDOC.PN ---
- Subjective Encounter Start Date: 04/05/18 Encounter Start Time: 09:15 Subjective: pt up in bed feel well today, able to tolerate his diet - Objective Resuscitation Status - Order Detail: 04/04/18 02:04 Resuscitation Status Routine Resuscitation Status: FULL: Full Resuscitation Vital Signs & Weight: Vital Signs (12 hours) Temp Pulse Ox 04/05/18 12:00 98.1 F 04/05/18 10:00 98 F 96 04/05/18 08:00 96 Weight Admit Weight 225 lb 1.6 oz Weight 233 lb 0.458 oz Most Recent Monitor Data Heart Rate from ECG 83 NIBP 104/54 NIBP BP-Mean 70 Respiration from ECG 19 SpO2 94 I&O: 04/04/18 04/05/18 04/06/18 06:59 06:59 06:59 Intake Total 2550 3665 450 Output Total 250 930 595 Balance 2300 2735 -145 Result Diagrams: 04/05/18 03:45 04/05/18 03:45 Additional Labs: Accuchecks 04/05/18 04/05/18 04/04/18 15:17 03:57 22:46 POC Glucose 106 98 122 H 04/04/18 05:53 POC Glucose 86 Phys Exam - Physical Examination Neck: no nodes, no JVD, supple, full ROM Respiratory: no wheezing, no rales, no rhonchi, wheezing present, clear to auscultation bilateral Cardiovascular: RRR, no significant murmur, no rub, gallop, irregular Gastrointestinal: soft, non-tender, no distention, positive bowel sounds colostomy in place Dx/Plan (1) Clostridium difficile infection Code(s): A49.8 - OTHER BACTERIAL INFECTIONS OF UNSPECIFIED SITE Status: Acute (2) UTI (urinary tract infection) Status: Acute (3) USHA (acute kidney injury) Code(s): N17.9 - ACUTE KIDNEY FAILURE, UNSPECIFIED Status: Acute (4) Metabolic acidosis Code(s): E87.2 - ACIDOSIS Status: Acute (5) Aortic dissection Code(s): I71.00 - DISSECTION OF UNSPECIFIED SITE OF AORTA Status: Acute (6) Sepsis Code(s): A41.9 - SEPSIS, UNSPECIFIED ORGANISM Status: Acute - Plan creatinine improving -: will continue abx for cdiff and uti -: blood cx positve for coagulase possible contaminate -: will change abx to levaquin and vanco for now -: bp low normal, diet advanced * . Review of Systems - Review of Systems Respiratory: negative: Cough, Dry, Shortness of Breath, Hemoptysis, SOB with Excertion, Pleuritic Pain, Sputum, Wheezing Cardiovascular: negative: chest pain, palpitations, orthopnea, paroxysmal nocturnal dyspnea, edema, light headedness, other Gastrointestinal: negative: Nausea, Vomiting, Abdominal Pain, Diarrhea, Constipation, Melena, Hematochezia, Other Genitourinary: negative: Dysuria, Frequency, Incontinence, Hematuria, Retention , Other - Medications/Allergies Allergies/Adverse Reactions: Allergies Allergy/AdvReac Type Severity Reaction Status Date / Time No Known Drug Allergies Allergy Verified 10/02/13 02:54 Medications: Current Medications Acetaminophen (Tylenol) 650 mg PO Q4H PRN PRN Reason: Headache/Fever/Mild Pain (1-3) Famotidine (Pepcid) [address] [facility] Last Admin: 04/05/18 09:21 Dose: 20 mg Folic Acid (Folvite) [address] [facility] Last Admin: 04/05/18 09:20 Dose: 1 mg Hydrocortisone Sodium Succinate (Solu-Cortef) [address] [facility] Last Admin: 04/05/18 15:06 Dose: 100 mg Metronidazole 500 mg/ Device 100 mls @ 100 mls/hr IVPB Q8HR [facility] Last Admin: 04/05/18 13:10 Dose: 100 mls Ceftriaxone Sodium 1 gm/ (Sodium Chloride) 100 mls @ 200 mls/hr IVPB Q24HR [facility] Last Admin: 04/05/18 03:31 Dose: 100 mls Sodium Chloride (Normal Saline 0.9%) 1,000 mls @ 100 mls/hr IV .Q10H [facility] Last Admin: 04/05/18 12:02 Dose: 1,000 mls Vancomycin HCl 1 gm/ Device 200 mls @ 200 mls/hr IVPB 2000 [facility] Last Admin: 04/04/18 20:37 Dose: 200 mls Miscellaneous Medication (Pharmacy To Dose) 1 each IVPB PRN PRN PRN Reason: Pharmacy to dose Miscellaneous Medication (Pharmacy To Dose) 1 each IVPB PRN PRN PRN Reason: Pharmacy to dose Multivitamins (Theragran) [address] [facility] Last Admin: 04/05/18 09:21 Dose: 1 tab Nystatin (Mycostatin) 500,[address] [facility] Last Admin: 04/05/18 16:59 Dose: 500,000 units Ondansetron HCl (Zofran Odt) 4 mg PO Q6H PRN PRN Reason: Nausea/Vomiting Last Admin: 04/04/18 10:50 Dose: 4 mg Ondansetron HCl (Zofran) 4 mg IVP Q6H PRN PRN Reason: Nausea/Vomiting Potassium Chloride (K-Dur) [address] [facility] Saccharomyces Boulardii (Florastor) [address] [facility] Last Admin: 04/05/18 09:20 Dose: 250 mg Sodium Chloride (Flush - Normal Saline) [address] [facility] Last Admin: 04/05/18 09:22 Dose: 10 ml Sodium Chloride (Flush - Normal Saline) 10 ml IVF PRN PRN PRN Reason: Saline Flush Thiamine HCl (Thiamine) [address] [facility] Last Admin: 04/05/18 09:20 Dose: 100 mg Vancomycin HCl (First Vancomycin) [address] [facility] Last Admin: 04/05/18 15:06 Dose: 250 mg
[2018-04-05] MEDS ORDERED: Potassium Chloride 20 MEQ TAB PO SCH (17:30)
[2018-04-05] MEDS: Vancomycin HCl 1 GM in Premix Bag 1 BAG IVPB SCH (19:44)
[2018-04-05 19:55] LABS: Vancomycin, Trough 14.2 ug/mL
[2018-04-06] MEDS: Hydrocortisone Sod Succ/PF 100 mg/2 ml Vial IVP SCH (03:47)
[2018-04-06] MEDS: Vancomycin HCl 25 MG/ML Oral PO SCH ×4 (03:47→21:45)
[2018-04-06] MEDS: Sodium Chloride 0.9% 1,000 ML IV SCH ×3 (04:46→17:40)
[2018-04-06] MEDS: metroNIDAZOLE 500 MG in Premix Bag 1 BAG IVPB SCH ×3 (05:01→21:45)
[2018-04-06 05:49] LABS: #Lymphocytes 1.1 thou/uL (1.20-3.40); #Monocytes 0.4 thou/uL (0.11-0.59); #Neutrophils 7.2 thou/uL (1.40-6.50); %Basophils 0.5 % (0.0-1.0); %Eosinophils 0.3 % (0.0-10.0); %Lymphocytes 12.8 % (21.0-51.0); %Monocytes 4.9 % (0.0-10.0); %Neutrophils 81.6 % (42.0-75.0); Hemoglobin 8.4 g/dL (14.0-18.0); Mean Corpuscular HGB CONC 31.6 g/dL (32.0-36.0); Mean Corpuscular Hemoglobin 30.1 pg (27.0-31.0); Mean Corpuscular Volume 95.3 fL (78.0-98.0); Mean Platelet Volume 7.5 fL (7.4-10.4); Platelet Count 223 thou/uL (130-400); RBC Distribution Width 16.9 % (11.5-14.5); Red Blood Cell (RBC) Count 2.78 mill/uL (4.70-6.10); White Blood Cell (WBC) Count 8.9 thou/uL (4.8-10.8)
[2018-04-06 06:11] LABS: Anion Gap 10 mmol/L (10-20); BUN (Urea Nitrogen) 76 mg/dL (8.4-25.7); Calc. Creatinine Clearance 28 mL/min (70-130); Calcium 7.4 mg/dL (7.8-10.44); Carbon Dioxide 19 mmol/L (23-31); Chloride 110 mmol/L (98-107); Estimated GFR-MDRD 20; Glucose 116 mg/dL (83-110); Magnesium 1.5 mg/dL (1.6-2.6); Potassium 3.3 mmol/L (3.5-5.1); Sodium 136 mmol/L (136-145)
[2018-04-06] MEDS ORDERED: Potassium Chloride 20 MEQ TAB PO SCH (08:00)
--- NOTE | 2018-04-06 08:29 | PRG ---
DATE OF SERVICE: 04/05/2018 SUBJECTIVE: The patient feels fine, had no complaints today. OBJECTIVE: VITAL SIGNS: On exam, his temperature is 98.6, pulse 73, blood pressure 106/54, O2 saturation 99%, 24-hour intake 3688, output 1395. HEENT: Unremarkable. NECK: No adenopathy, JVD, or bruits. LUNGS: Clear anteriorly. CARDIAC: S1 and S2, regular. ABDOMEN: Soft, nontender. Colostomy functioning. EXTREMITIES: No edema. LABORATORY DATA: White count 8.9, hematocrit 26.5, and platelet count 223. Sodium 136, potassium 3.3, chloride 110, CO2 19, anion gap 10, BUN 76, creatinine 3.6, glucose 116. Cultures show Klebsiella pneumonia in the urine which is sensitive only to Levaquin, meropenem, cefoxitin, and amikacin. He also has coag-negative staph in the blood. ASSESSMENT: 1. Clostridium difficile colitis. 2. Gram-negative urinary tract infection with Klebsiella. 3. Profound volume depletion, which has improved with hydration. PLAN: The patient will be transferred out to the medical floor. He will continue on the Levaquin, the metronidazole, the IV vancomycin, and the oral vancomycin. His potassium will be replaced. I will go ahead and cut his steroid dose and he can be converted to oral steroids. Job ID: [id number]
[2018-04-06] MEDS: Folic Acid 1 MG TAB PO SCH (08:45)
[2018-04-06] MEDS: Famotidine 20 MG TAB PO SCH (08:45)
[2018-04-06] MEDS: Saccharomyces boulardii 250 MG CAP PO SCH (08:46)
[2018-04-06] MEDS: predniSONE 20 MG TAB PO SCH (08:46)
[2018-04-06] MEDS: Multivit, Therapeutic 1 TAB PO SCH (08:46)
[2018-04-06] MEDS: Nystatin 500,000 UNITS/5 ML UDCUP PO SCH ×4 (08:50→21:57)
[2018-04-06] MEDS: Acetaminophen 325 MG TAB PO PRN (10:23)
--- NOTE | 2018-04-06 14:17 | PRG ---
DATE OF SERVICE: 04/06/2018 SUBJECTIVE: Patient was seen and examined at bedside and overnight events noted. Patient denies any shortness of breath or chest pain or palpitation. No history of nausea or vomiting or diarrhea or fever or chills or cramps. OBJECTIVE: GENERAL: This is a well-built male, in no apparent distress. VITAL SIGNS: Temperature 98.6. Heart rate 89. Respiratory rate 20. Blood pressure 122/69. HEENT: Atraumatic, normocephalic. Oral mucosa is moist NECK: Supple. CARDIOVASCULAR: S1, S2 heard. Rate and rhythm regular. RESPIRATORY: Clear to auscultation. GASTROINTESTINAL: Abdomen is soft. MUSCULOSKELETAL: No tenderness. No edema. DERMATOLOGIC: No skin rash. NEUROLOGIC: Alert and awake and oriented X3. No focal neurologic deficits. Moving all the extremities. PSYCHIATRIC: Mood and affect normal. LABORATORY DATA: Potassium is 3.3, BUN is 76, and creatinine is 3.6. ASSESSMENT AND PLAN: 1. Acute kidney injury on chronic kidney disease, renal function is getting better. 2. Hypokalemia. 3. Metabolic acidosis. 4. Anemia. 5. Hyponatremia, stable. 6. Hypotension, better. 7. Edema, controlled. Renal function is getting better. Continue hydration as tolerated. Monitor cardiorespiratory status. Job ID: [id number]
--- NOTE | 2018-04-06 19:35 | PDOC.PN ---
- Subjective Encounter Start Date: 04/06/18 Encounter Start Time: 19:00 Subjective: f/u for c. diff colitis on po Vancomycin. Volume output in ostomy decreased -: Appetite improved. States overall feeling better. Nsg reports pt stable. - Objective Resuscitation Status - Order Detail: 04/04/18 02:04 Resuscitation Status Routine Resuscitation Status: FULL: Full Resuscitation MAR Reviewed: Yes Vital Signs & Weight: Vital Signs (12 hours) Temp Pulse Pulse BP BP 04/06/18 16:00 97.9 F 04/06/18 13:00 96 98 126/72 120/66 04/06/18 12:00 97.7 F 04/06/18 08:00 96.9 F L Weight Admit Weight 225 lb 1.6 oz Weight 242 lb 8.136 oz Most Recent Monitor Data Heart Rate from ECG 86 NIBP 132/75 NIBP BP-Mean 94 Respiration from ECG 23 SpO2 99 I&O: 04/05/18 04/06/18 04/07/18 06:59 06:59 06:59 Intake Total 3665 3688 2084 Output Total 930 1395 650 Balance 2735 2293 1434 Result Diagrams: 04/06/18 05:42 04/06/18 05:42 Additional Labs: Accuchecks 04/06/18 04/05/18 05:04 21:54 POC Glucose 99 126 H Microbiology 04/04/18 17:30 Urine parker catheter Urine Culture - Final Klebsiella pneumoniae ssp pneu 04/03/18 15:32 Stool - Pending C. difficile GDH Antigen & Toxins - Final 04/03/18 15:32 Stool - Pending Clostridium difficile Toxin A&B PCR - Final 04/03/18 15:07 Nasal swab Influenza Types A,B Direct EIA - Final 04/03/18 14:03 Venous blood - Left Arm Blood Culture - Final Coagulase Neg Staphylococcus 04/03/18 14:01 Urine Straight Catheter Urine Culture - Final Klebsiella pneumoniae ssp pneu 04/03/18 14:29 Venous blood - Right Hand Blood Culture - Preliminary NO GROWTH AT 48 HOURS Laboratory Tests 04/03/18 04/03/18 04/04/18 14:29 23:03 05:20 WBC 17.8 H Hgb 11.6 L Potassium 4.6 Creatinine 6.95 H 6.28 H Magnesium Vancomycin Trough 04/04/18 04/04/18 04/05/18 05:20 15:53 03:45 WBC 14.3 H Hgb 9.7 L Potassium 3.8 3.3 L Creatinine 5.44 H 4.42 H Magnesium Vancomycin Trough 04/05/18 04/05/18 04/06/18 03:45 19:14 05:42 WBC 7.3 Hgb 8.8 L Potassium Creatinine Magnesium 1.5 L Vancomycin Trough 14.2 EKG Reviewed by me: Yes (Tele - SR) Phys Exam - Physical Examination Constitutional: NAD HEENT: PERRLA, sclera anicteric, oral pharynx no lesions Neck: no nodes, no JVD, supple, full ROM Respiratory: no wheezing, no rales, no rhonchi, clear to auscultation bilateral S1, S2 Cardiovascular: RRR, no significant murmur, no rub, gallop + ostomy in place with liquid stool Gastrointestinal: soft, non-tender, no distention, positive bowel sounds Musculoskeletal: pulses present, edema present Neurological: normal sensation, moves all 4 limbs Psychiatric: A&O x 3 Deviation from normal: chronic large sacral decubitus ulcer Skin: normal turgor, cap refill <2 seconds Dx/Plan (1) USHA (acute kidney injury) Code(s): N17.9 - ACUTE KIDNEY FAILURE, UNSPECIFIED Status: Acute Comment: Slow clinical improvement, continue IVF's, avoid nephrotoxic meds and limit contrast exposure (2) Clostridium difficile infection Code(s): A49.8 - OTHER BACTERIAL INFECTIONS OF UNSPECIFIED SITE Status: Acute Comment: Continue Flagyl/Vancomycin, contact precautions, Florastor (3) Sepsis Code(s): A41.9 - SEPSIS, UNSPECIFIED ORGANISM Status: Acute Comment: Resolved, continue mgmt as outlined above (4) UTI (urinary tract infection) Status: Acute Comment: Klebsiella spp, continue Levaquin (5) Sacral decubitus ulcer, stage IV Code(s): L89.154 - PRESSURE ULCER OF [place]CR[place] REGION, STAGE 4 Status: Chronic Comment: WCT for local care, offload pressure, low-airloss mattress - Plan continue antibiotics, PT/OT, social service assistant, out of bed/ambulate, DVT proph w/ SCDs Stable currently -: Continue Flagyl/Vancomycin -: D/C IV Vancomycin -: Continue Levaquin for UIT -: [facility] for local care * Continue IVF's * AM lab: BMP, CBC
[2018-04-06] MEDS: Vancomycin HCl 1 GM in Premix Bag 1 BAG IVPB SCH (19:50)
[2018-04-07] MEDS: Vancomycin HCl 25 MG/ML Oral PO SCH ×4 (04:19→21:36)
[2018-04-07] MEDS: Sodium Chloride 0.9% 1,000 ML IV SCH ×2 (04:26→08:13)
[2018-04-07] MEDS: metroNIDAZOLE 500 MG in Premix Bag 1 BAG IVPB SCH ×3 (05:36→21:36)
[2018-04-07] MEDS: Folic Acid 1 MG TAB PO SCH (08:05)
[2018-04-07] MEDS: Famotidine 20 MG TAB PO SCH (08:05)
[2018-04-07] MEDS: Multivit, Therapeutic 1 TAB PO SCH (08:05)
[2018-04-07] MEDS: Saccharomyces boulardii 250 MG CAP PO SCH (08:05)
[2018-04-07] MEDS: predniSONE 20 MG TAB PO SCH (08:05)
[2018-04-07] MEDS: Nystatin 500,000 UNITS/5 ML UDCUP PO SCH ×4 (08:05→21:36)
[2018-04-07] MEDS: Acetaminophen 325 MG TAB PO PRN (11:07)
[2018-04-07 12:00] LABS: Anion Gap 15 mmol/L (10-20); BUN (Urea Nitrogen) 66 mg/dL (8.4-25.7); Calc. Creatinine Clearance 39 mL/min (70-130); Calcium 7.6 mg/dL (7.8-10.44); Carbon Dioxide 14 mmol/L (23-31); Chloride 115 mmol/L (98-107); Estimated GFR-MDRD 29; Glucose 85 mg/dL (83-110); Potassium 3.9 mmol/L (3.5-5.1); Sodium 140 mmol/L (136-145)
[2018-04-07 12:11] LABS: Hemoglobin 9.1 g/dL (14.0-18.0); Mean Corpuscular HGB CONC 30.8 g/dL (32.0-36.0); Mean Corpuscular Hemoglobin 29.8 pg (27.0-31.0); Mean Corpuscular Volume 96.7 fL (78.0-98.0); Mean Platelet Volume 7.4 fL (7.4-10.4); Platelet Count 218 thou/uL (130-400); RBC Distribution Width 17.3 % (11.5-14.5); Red Blood Cell (RBC) Count 3.06 mill/uL (4.70-6.10); White Blood Cell (WBC) Count 12.2 thou/uL (4.8-10.8)
[2018-04-07 13:04] LABS: Band 3 % (5-11); Eosinophils 1 % (0-10); Hypochromia SLIGHT = 6-15 cells (100X) (0-5/hpf); Lymphocytes 8 % (21-51); MDiff Complete? YES; Monocytes 8 % (0-10); Neutrophil 80 % (42-75); Platelet Morphology Comment Appears Adequate; Polychromasia SLIGHT = 2-3 cells (100X) (0-2/hpf)
[2018-04-07 14:44] VITALS: BMI 33.8
[2018-04-07 20:39] LABS: Vancomycin, Trough 21.2 ug/mL
[2018-04-07] MEDS: Vancomycin HCl 1 GM in Premix Bag 1 BAG IVPB SCH (20:46)
[2018-04-07] MEDS: Vancomycin HCl 750 MG in Sodium Chloride 0.9% 250 ML 250 ML IVPB SCH (21:36)
--- NOTE | 2018-04-07 21:46 | PDOC.PN ---
- Subjective Encounter Start Date: 04/07/18 Encounter Start Time: 11:00 Patient seen and examined for USHA/UTI/Colitis. Feels better. Diarrhea improving. No new complaints. No overnight events - Objective Resuscitation Status - Order Detail: 04/04/18 02:04 Resuscitation Status Routine Resuscitation Status: FULL: Full Resuscitation MAR Reviewed: Yes Vital Signs & Weight: Vital Signs (12 hours) Pulse Ox 04/07/18 10:34 95 Weight Admit Weight 225 lb 1.6 oz Weight 242 lb 8.136 oz Most Recent Monitor Data Heart Rate from ECG 80 NIBP 102/59 NIBP BP-Mean 73 Respiration from ECG 0 SpO2 98 I&O: 04/06/18 04/07/18 04/08/18 06:59 06:59 06:59 Intake Total 3688 3764 480 Output Total 1395 1350 Balance 2293 2414 480 Result Diagrams: 04/08/18 08:22 04/07/18 11:24 Additional Labs: Accuchecks 04/05/18 09:29 POC Glucose 201 H Phys Exam - Physical Examination Constitutional: NAD Respiratory: no wheezing, no rhonchi Cardiovascular: RRR, no rub Gastrointestinal: soft, non-tender, positive bowel sounds Psychiatric: A&O x 3 Dx/Plan - Plan DVT proph w/SCDs IMPRESSION: 1. Sepsis with acute organ dysfunction. 2. Clostridium difficile colitis/ Klebsiella UTI 3. Physical deconditioning. 4. Benign prostatic hypertrophy. 5. Moderate protein-calorie malnutrition. 6. Metabolic acidosis secondary to renal failure. 7. Acute kidney injury secondary to dehydration and poor oral intake. 8. Lactic acidosis. 9. Elevated inflammatory markers. 10. Multiple electrolyte abnormalities including hyponatremia, hyperkalemia secondary to renal failure. 11. Chronic anemia. 12. Obesity with a body mass index of 31.4. 13. Concern for aortic dissection. 14. Pressure ulcer (Stage 2 mid back and Stage 4 sacral) present on admission PLAN: Cont PO Vancomycin with IV Levaquin Cont wound care Cont other meds as below Microbiology 04/04/18 17:30 Urine parker catheter Urine Culture - Final Klebsiella pneumoniae ssp pneu 04/03/18 15:32 Stool - Pending C. difficile GDH Antigen & Toxins - Final 04/03/18 15:32 Stool - Pending Clostridium difficile Toxin A&B PCR - Final 04/03/18 15:07 Nasal swab Influenza Types A,B Direct EIA - Final 04/03/18 14:03 Venous blood - Left Arm Blood Culture - Final Coagulase Neg Staphylococcus 04/03/18 14:01 Urine Straight Catheter Urine Culture - Final Klebsiella pneumoniae ssp pneu 04/03/18 14:29 Venous blood - Right Hand Blood Culture - Preliminary NO GROWTH AT 48 HOURS Review of Systems - Review of Systems Respiratory: negative: Cough, Dry, Shortness of Breath, Hemoptysis, SOB with Excertion, Pleuritic Pain, Sputum, Wheezing Cardiovascular: negative: chest pain, palpitations, orthopnea, paroxysmal nocturnal dyspnea, edema, light headedness, other Gastrointestinal: negative: Nausea, Vomiting, Abdominal Pain, Diarrhea, Constipation, Melena, Hematochezia, Other - Medications/Allergies Allergies/Adverse Reactions: Allergies Allergy/AdvReac Type Severity Reaction Status Date / Time No Known Drug Allergies Allergy Verified 10/02/13 02:54 Medications: Current Medications Acetaminophen (Tylenol) 650 mg PO Q4H PRN PRN Reason: Headache/Fever/Mild Pain (1-3) Last Admin: 04/07/18 11:07 Dose: 650 mg Famotidine (Pepcid) 20 mg PO QAM [facility] Last Admin: 04/07/18 08:05 Dose: 20 mg Folic Acid (Folvite) 1 mg PO DAILY [facility] Last Admin: 04/07/18 08:05 Dose: 1 mg Metronidazole 500 mg/ Device 100 mls @ 100 mls/hr IVPB Q8HR [facility] Last Admin: 04/07/18 21:36 Dose: 100 mls Sodium Chloride (Normal Saline 0.9%) 1,000 mls @ 100 mls/hr IV .Q10H [facility] Last Admin: 04/07/18 08:13 Dose: 1,000 mls Levofloxacin 250 mg/ Device 50 mls @ 100 mls/hr IVPB Q2D@1800 [facility] Last Admin: 04/07/18 17:18 Dose: 50 mls Vancomycin HCl 750 mg/ Sodium (Chloride) 250 mls @ 250 mls/hr IVPB 2100 [facility] Last Admin: 04/07/18 21:36 Dose: 250 mls Miscellaneous Medication (Pharmacy To Dose) 1 each IVPB PRN PRN PRN Reason: Pharmacy to dose Miscellaneous Medication (Pharmacy To Dose) 1 each IVPB PRN PRN PRN Reason: Pharmacy to dose Multivitamins (Theragran) 1 tab PO DAILY [facility] Last Admin: 04/07/18 08:05 Dose: 1 tab Nystatin (Mycostatin) 500,000 units PO QID [facility] Last Admin: 04/07/18 21:36 Dose: 500,000 units Ondansetron HCl (Zofran Odt) 4 mg PO Q6H PRN PRN Reason: Nausea/Vomiting Last Admin: 04/04/18 10:50 Dose: 4 mg Ondansetron HCl (Zofran) 4 mg IVP Q6H PRN PRN Reason: Nausea/Vomiting Prednisone (Prednisone) 20 mg PO DAILY [facility] Last Admin: 04/07/18 08:05 Dose: 20 mg Saccharomyces Boulardii (Florastor) 250 mg PO DAILY [facility] Last Admin: 04/07/18 08:05 Dose: 250 mg Sodium Chloride (Flush - Normal Saline) 10 ml IVF Q12HR [facility] Last Admin: 04/07/18 21:36 Dose: 10 ml Sodium Chloride (Flush - Normal Saline) 10 ml IVF PRN PRN PRN Reason: Saline Flush Thiamine HCl (Thiamine) 100 mg PO DAILY [facility] Last Admin: 04/07/18 08:05 Dose: 100 mg Vancomycin HCl (First Vancomycin) 250 mg PO Q6H [facility] Last Admin: 04/07/18 21:36 Dose: 250 mg
[2018-04-08] MEDS: Vancomycin HCl 25 MG/ML Oral PO SCH ×4 (02:49→20:46)
[2018-04-08] MEDS: Sodium Chloride 0.9% 1,000 ML IV SCH ×2 (02:50→11:17)
[2018-04-08] MEDS: metroNIDAZOLE 500 MG in Premix Bag 1 BAG IVPB SCH ×3 (05:31→20:43)
[2018-04-08] MEDS: Nystatin 500,000 UNITS/5 ML UDCUP PO SCH ×4 (08:12→20:41)
[2018-04-08] MEDS: Famotidine 20 MG TAB PO SCH (08:12)
[2018-04-08] MEDS: Multivit, Therapeutic 1 TAB PO SCH (08:12)
[2018-04-08] MEDS: Saccharomyces boulardii 250 MG CAP PO SCH (08:12)
[2018-04-08] MEDS: Folic Acid 1 MG TAB PO SCH (08:12)
[2018-04-08] MEDS: predniSONE 20 MG TAB PO SCH (08:12)
[2018-04-08 09:26] LABS: Hemoglobin 9.4 g/dL (14.0-18.0); Mean Corpuscular HGB CONC 29.1 g/dL (32.0-36.0); Mean Corpuscular Hemoglobin 28.5 pg (27.0-31.0); Mean Corpuscular Volume 98.1 fL (78.0-98.0); Mean Platelet Volume 7.9 fL (7.4-10.4); Platelet Count 175 thou/uL (130-400); RBC Distribution Width 17.1 % (11.5-14.5); White Blood Cell (WBC) Count 8.7 thou/uL (4.8-10.8)
[2018-04-08 09:56] LABS: Anion Gap 13 mmol/L (10-20); BUN (Urea Nitrogen) 58 mg/dL (8.4-25.7); Calc. Creatinine Clearance 49 mL/min (70-130); Calcium 7.5 mg/dL (7.8-10.44); Carbon Dioxide 13 mmol/L (23-31); Chloride 118 mmol/L (98-107); Estimated GFR-MDRD 37; Glucose 71 mg/dL (83-110); Magnesium 1.7 mg/dL (1.6-2.6); Potassium 4.1 mmol/L (3.5-5.1); Sodium 140 mmol/L (136-145)
[2018-04-08 11:14] LABS: #Lymphocytes 2.5 thou/uL (1.20-3.40); #Monocytes 1.1 thou/uL (0.11-0.59); #Neutrophils 5.9 thou/uL (1.40-6.50); Eosinophils 1 % (0-10); Hypochromia SLIGHT = 6-15 cells (100X) (0-5/hpf); Lymphocytes 11 % (21-51); MDiff Complete? YES; Monocytes 15 % (0-10); Neutrophil 73 % (42-75); Platelet Morphology Comment Appears Adequate; Polychromasia SLIGHT = 2-3 cells (100X) (0-2/hpf)
[2018-04-08] MEDS: Sodium Bicarbonate 100 MEQ in Dextrose 5% in Water 1,000 ML IV SCH (15:06)
--- NOTE | 2018-04-08 18:02 | PRG ---
DATE OF SERVICE: 04/08/2018 SUBJECTIVE: A 72-year-old gentleman being seen for acute kidney injury. The patient denies any nausea, vomiting, or chest pain. OBJECTIVE: GENERAL: The patient is awake and alert. VITAL SIGNS: Afebrile, pulse 75, breathing 16, and blood pressure was 100/68. GENERAL APPEARANCE AND MENTAL STATUS: Fair. HEAD/NECK: Normocephalic. Atraumatic. EYES: EOMI. No deformity. EARS: Clear. No ulcers. NOSE: Intact. No lesions. MOUTH: Clear. No discharge. THROAT: Clear. No exudate. LUNGS: Clear. No crackles. CARDIAC: S1, S2. No rub. ABDOMEN: Benign. Bowel sounds positive. GENITALIA/RECTUM: Montero absent. BACK/EXTREMITIES: Edema 0+. NEUROLOGICAL: Alert and motor intact. SKIN: LYMPHATICS: LABORATORY DATA: Lab show hemoglobin 9.4. Creatinine 2.1. ASSESSMENT AND PLAN: 1. Acute kidney injury, improved. 2. Acidosis, start sodium bicarbonate. 3. Anemia, stable. 4. Hyperkalemia, stable. 5. Medication based on GFR, appropriate. No indication for dialysis. Job ID: [id number]
[2018-04-08] MEDS: Sodium Bicarbonate Tab 325 MG TAB PO SCH (20:41)
[2018-04-08] MEDS: Vancomycin HCl 750 MG in Sodium Chloride 0.9% 250 ML 250 ML IVPB SCH (20:41)
--- NOTE | 2018-04-08 23:08 | PDOC.PN ---
- Subjective Encounter Start Date: 04/08/18 Encounter Start Time: 13:00 Patient seen and examined for Sepsis. Feels better. Asking when he can go home. No new complaints. No overnight events - Objective Resuscitation Status - Order Detail: 04/04/18 02:04 Resuscitation Status Routine Resuscitation Status: FULL: Full Resuscitation MAR Reviewed: Yes Vital Signs & Weight: Vital Signs (12 hours) Temp Pulse Resp BP Pulse Ox 04/08/18 20:00 98 04/08/18 19:55 98.3 F 91 16 108/68 98 Weight Admit Weight 225 lb 1.6 oz Weight 242 lb 8.136 oz Most Recent Monitor Data Heart Rate from ECG 80 NIBP 102/59 NIBP BP-Mean 73 Respiration from ECG 0 SpO2 98 I&O: 04/07/18 04/08/18 04/09/18 06:59 06:59 06:59 Intake Total 3764 1920 720 Output Total 1350 1400 Balance 2414 520 720 Result Diagrams: 04/08/18 08:22 04/08/18 08:22 Phys Exam - Physical Examination Constitutional: NAD Respiratory: no wheezing, no rhonchi Cardiovascular: RRR, no rub Gastrointestinal: soft, non-tender, positive bowel sounds Musculoskeletal: no edema Neurological: moves all 4 limbs Dx/Plan - Plan DVT proph w/SCDs IMPRESSION: 1. Sepsis with acute organ dysfunction. 2. Clostridium difficile colitis/ Klebsiella UTI 3. Physical deconditioning. 4. Benign prostatic hypertrophy. 5. Moderate protein-calorie malnutrition. 6. Metabolic acidosis secondary to renal failure. 7. Acute kidney injury secondary to dehydration and poor oral intake. 8. Lactic acidosis. 9. Elevated inflammatory markers. 10. Multiple electrolyte abnormalities including hyponatremia, hyperkalemia secondary to renal failure. 11. Chronic anemia. 12. Obesity with a body mass index of 31.4. 13. Concern for aortic dissection. on Medical mngt 14. Pressure ulcer (Stage 2 mid back and Stage 4 sacral) present on admission. PLAN: Cont supportive care Change IVF to D5 with bicarb due to hyperchloremia AM labs Cont PO Vancomycin with IV Levaquin/Flagyl Cont wound care for pressure ulcers Cont other meds as below Review of Systems - Review of Systems Respiratory: negative: Cough, Dry, Shortness of Breath, Hemoptysis, SOB with Excertion, Pleuritic Pain, Sputum, Wheezing Cardiovascular: negative: chest pain, palpitations, orthopnea, paroxysmal nocturnal dyspnea, edema, light headedness, other Gastrointestinal: negative: Nausea, Vomiting, Abdominal Pain, Diarrhea, Constipation, Melena, Hematochezia, Other - Medications/Allergies Allergies/Adverse Reactions: Allergies Allergy/AdvReac Type Severity Reaction Status Date / Time No Known Drug Allergies Allergy Verified 10/02/13 02:54 Medications: Current Medications Acetaminophen (Tylenol) 650 mg PO Q4H PRN PRN Reason: Headache/Fever/Mild Pain (1-3) Last Admin: 04/07/18 11:07 Dose: 650 mg Famotidine (Pepcid) 20 mg PO QAM [facility] Last Admin: 04/08/18 08:12 Dose: 20 mg Folic Acid (Folvite) 1 mg PO DAILY [facility] Last Admin: 04/08/18 08:12 Dose: 1 mg Metronidazole 500 mg/ Device 100 mls @ 100 mls/hr IVPB Q8HR [facility] Last Admin: 04/08/18 20:43 Dose: 100 mls Levofloxacin 250 mg/ Device 50 mls @ 100 mls/hr IVPB Q2D@1800 [facility] Last Admin: 04/07/18 17:18 Dose: 50 mls Vancomycin HCl 750 mg/ Sodium (Chloride) 250 mls @ 250 mls/hr IVPB 2100 [facility] Last Admin: 04/08/18 20:41 Dose: 250 mls Sodium Bicarbonate 100 meq/ (Dextrose/Water) 1,100 mls @ 75 mls/hr IV .[id number] [facility] Last Admin: 04/08/18 15:06 Dose: 1,100 mls Miscellaneous Medication (Pharmacy To Dose) 1 each IVPB PRN PRN PRN Reason: Pharmacy to dose Miscellaneous Medication (Pharmacy To Dose) 1 each IVPB PRN PRN PRN Reason: Pharmacy to dose Multivitamins (Theragran) 1 tab PO DAILY [facility] Last Admin: 04/08/18 08:12 Dose: 1 tab Nystatin (Mycostatin) 500,000 units PO QID [facility] Last Admin: 04/08/18 20:41 Dose: 500,000 units Ondansetron HCl (Zofran Odt) 4 mg PO Q6H PRN PRN Reason: Nausea/Vomiting Last Admin: 04/04/18 10:50 Dose: 4 mg Ondansetron HCl (Zofran) 4 mg IVP Q6H PRN PRN Reason: Nausea/Vomiting Prednisone (Prednisone) 20 mg PO DAILY [facility] Last Admin: 04/08/18 08:12 Dose: 20 mg Saccharomyces Boulardii (Florastor) 250 mg PO DAILY [facility] Last Admin: 04/08/18 08:12 Dose: 250 mg Sodium Bicarbonate (Bicarbonate, Sodium) 650 mg PO QID [facility] Last Admin: 04/08/18 20:41 Dose: 650 mg Sodium Chloride (Flush - Normal Saline) 10 ml IVF Q12HR [facility] Last Admin: 04/08/18 20:42 Dose: 10 ml Sodium Chloride (Flush - Normal Saline) 10 ml IVF PRN PRN PRN Reason: Saline Flush Thiamine HCl (Thiamine) 100 mg PO DAILY [facility] Last Admin: 04/08/18 08:22 Dose: 100 mg Vancomycin HCl (First Vancomycin) 250 mg PO Q6H [facility] Last Admin: 04/08/18 20:46 Dose: 250 mg
[2018-04-09] MEDS: Vancomycin HCl 25 MG/ML Oral PO SCH ×4 (03:30→20:14)
[2018-04-09] MEDS: metroNIDAZOLE 500 MG in Premix Bag 1 BAG IVPB SCH ×3 (04:54→22:34)
[2018-04-09 09:55] LABS: Hemoglobin 9.4 g/dL (14.0-18.0); Mean Corpuscular HGB CONC 30.1 g/dL (32.0-36.0); Mean Corpuscular Hemoglobin 28.6 pg (27.0-31.0); Mean Corpuscular Volume 95.1 fL (78.0-98.0); Mean Platelet Volume 7.9 fL (7.4-10.4); Platelet Count 174 thou/uL (130-400); RBC Distribution Width 17.1 % (11.5-14.5); Red Blood Cell (RBC) Count 3.29 mill/uL (4.70-6.10)
[2018-04-09 10:09] LABS: Anion Gap 12 mmol/L (10-20); BUN (Urea Nitrogen) 45 mg/dL (8.4-25.7); Calc. Creatinine Clearance 62 mL/min (70-130); Calcium 7.5 mg/dL (7.8-10.44); Carbon Dioxide 17 mmol/L (23-31); Chloride 115 mmol/L (98-107); Estimated GFR-MDRD 49; Glucose 90 mg/dL (83-110); Magnesium 1.2 mg/dL (1.6-2.6); Potassium 3.4 mmol/L (3.5-5.1); Sodium 141 mmol/L (136-145)
[2018-04-09] MEDS: Folic Acid 1 MG TAB PO SCH (10:11)
[2018-04-09] MEDS: Nystatin 500,000 UNITS/5 ML UDCUP PO SCH ×4 (10:12→20:13)
[2018-04-09] MEDS: Famotidine 20 MG TAB PO SCH (10:12)
[2018-04-09] MEDS: predniSONE 20 MG TAB PO SCH (10:12)
[2018-04-09] MEDS: Sodium Bicarbonate Tab 325 MG TAB PO SCH ×4 (10:12→20:13)
[2018-04-09] MEDS: Multivit, Therapeutic 1 TAB PO SCH (10:12)
[2018-04-09] MEDS: Saccharomyces boulardii 250 MG CAP PO SCH (10:13)
[2018-04-09] MEDS ORDERED: Magnesium Sulfate 4 GM in Sodium Chloride 0.9% 250 ML 250 ML IVPB SCH (10:45)
[2018-04-09] MEDS ORDERED: Magnesium 2 GM/50 ML 2 GM in Premix Bag 1 BAG IVPB SCH (11:15)
[2018-04-09] MEDS ORDERED: Potassium Chloride 20 MEQ TAB PO SCH (11:15)
[2018-04-09 11:24] LABS: Eosinophils 1 % (0-10); Hypochromia SLIGHT = 6-15 cells (100X) (0-5/hpf); Lymphocytes 16 % (21-51); MDiff Complete? YES; Monocytes 8 % (0-10); Neutrophil 73 % (42-75); Platelet Morphology Comment Appears Adequate; Polychromasia SLIGHT = 2-3 cells (100X) (0-2/hpf); Reactive Lymphocytes 2 % (0-10); Target Cells SLIGHT = 2-5 cells (100X) (0-1/hpf)
--- NOTE | 2018-04-09 12:03 | PRG ---
DATE OF SERVICE: 04/09/2018 SUBJECTIVE: A 72-year-old gentleman, being seen for acute kidney injury. The patient denied any nausea, vomiting, or chest pain. OBJECTIVE: GENERAL: The patient is awake and alert. VITAL SIGNS: Afebrile, pulse 95, breathing 16, blood pressure 108/62. GENERAL APPEARANCE AND MENTAL STATUS: Fair. HEAD/NECK: Normocephalic. Atraumatic. EYES: EOMI. No deformity. EARS: Clear. No ulcers. NOSE: Intact. No lesions. MOUTH: Clear. No discharge. THROAT: Clear. No exudate. LUNGS: Clear. No crackles. CARDIAC: S1, S2. No rub. ABDOMEN: Benign. Bowel sounds positive. GENITALIA/RECTUM: Montero absent. BACK/EXTREMITIES: Edema 0+. NEUROLOGICAL: Alert and motor intact. SKIN: LYMPHATICS: LABORATORY DATA: Creatinine is 1.6. ASSESSMENT AND PLAN: 1. Acute kidney injury, improved. 2. Hypertension, improved. 3. Metabolic acidosis, stable. Continue sodium bicarbonate p.o. 4. Hypomagnesemia. Recommend 1 g of magnesium sulfate IV. I will sign off on this patient, please reconsult as needed. Job ID: [id number]
[2018-04-09] MEDS: Sodium Bicarbonate 100 MEQ in Dextrose 5% in Water 1,000 ML IV SCH ×2 (13:57→15:14)
[2018-04-09] MEDS: Potassium Chloride 10 MEQ TAB PO SCH (17:40)
[2018-04-09] MEDS: Vancomycin HCl 750 MG in Sodium Chloride 0.9% 250 ML 250 ML IVPB SCH (20:15)
[2018-04-09 20:31] LABS: Vancomycin, Trough 22.7 ug/mL
--- NOTE | 2018-04-09 20:41 | PDOC.PN ---
- Subjective Encounter Start Date: 04/09/18 Encounter Start Time: 10:30 Patient seen and examined for Sepsis. No new complaints. No overnight events - Objective Resuscitation Status - Order Detail: 04/04/18 02:04 Resuscitation Status Routine Resuscitation Status: FULL: Full Resuscitation MAR Reviewed: Yes Vital Signs & Weight: Vital Signs (12 hours) Temp Pulse Resp BP Pulse Ox 04/09/18 08:44 98.6 F 95 20 108/62 95 Weight Admit Weight 225 lb 1.6 oz Weight 242 lb 8.136 oz Most Recent Monitor Data Heart Rate from ECG 80 NIBP 102/59 NIBP BP-Mean 73 Respiration from ECG 0 SpO2 98 I&O: 04/08/18 04/09/18 04/10/18 06:59 06:59 06:59 Intake Total 1920 720 540 Output Total 1400 Balance 520 720 540 Result Diagrams: 04/09/18 09:03 04/09/18 09:03 Phys Exam - Physical Examination Constitutional: NAD Respiratory: no wheezing, no rhonchi Cardiovascular: RRR, no rub Gastrointestinal: soft, non-tender, positive bowel sounds Musculoskeletal: no edema Neurological: moves all 4 limbs Dx/Plan - Plan DVT proph w/SCDs (not on Heparin due to chronic aortic dissection) IMPRESSION: 1. Sepsis with acute organ dysfunction. 2. Clostridium difficile colitis/ Klebsiella UTI 3. Physical deconditioning. 4. Benign prostatic hypertrophy. 5. Moderate protein-calorie malnutrition. 6. Metabolic acidosis secondary to renal failure. 7. USHA secondary to dehydration and poor oral intake. 8. Lactic acidosis. 9. Elevated inflammatory markers. 10. Multiple electrolyte abnormalities including hyponatremia, hyperkalemia secondary to renal failure. 11. Chronic anemia. 12. Obesity with a body mass index of 31.4. 13. Concern for aortic dissection. on Medical mngt 14. Pressure ulcer (Stage 2 mid back and Stage 4 sacral) present on admission. PLAN: Reduce D5 with bicarb to 50 ml/hr Cont current Atbx (PO Vancomycin with IV Levaquin/Flagyl) Cont wound care for pressure ulcers Cont other meds as below AM labs Cont supportive care Review of Systems - Review of Systems Respiratory: negative: Cough, Dry, Shortness of Breath, Hemoptysis, SOB with Excertion, Pleuritic Pain, Sputum, Wheezing Cardiovascular: negative: chest pain, palpitations, orthopnea, paroxysmal nocturnal dyspnea, edema, light headedness, other - Medications/Allergies Allergies/Adverse Reactions: Allergies Allergy/AdvReac Type Severity Reaction Status Date / Time No Known Drug Allergies Allergy Verified 10/02/13 02:54 Medications: Current Medications Acetaminophen (Tylenol) 650 mg PO Q4H PRN PRN Reason: Headache/Fever/Mild Pain (1-3) Last Admin: 04/07/18 11:07 Dose: 650 mg Famotidine (Pepcid) 20 mg PO QAM [facility] Last Admin: 04/09/18 10:12 Dose: 20 mg Folic Acid (Folvite) 1 mg PO DAILY [facility] Last Admin: 04/09/18 10:11 Dose: 1 mg Metronidazole 500 mg/ Device 100 mls @ 100 mls/hr IVPB Q8HR [facility] Last Admin: 04/09/18 15:14 Dose: 100 mls Levofloxacin 250 mg/ Device 50 mls @ 100 mls/hr IVPB Q2D@1800 [facility] Last Admin: 04/09/18 17:39 Dose: 50 mls Vancomycin HCl 750 mg/ Sodium (Chloride) 250 mls @ 250 mls/hr IVPB 2100 [facility] Last Admin: 04/09/18 20:15 Dose: 250 mls Sodium Bicarbonate 100 meq/ (Dextrose/Water) 1,100 mls @ 50 mls/hr IV .Q22H [facility] Last Admin: 04/09/18 15:14 Dose: 1,100 mls Miscellaneous Medication (Pharmacy To Dose) 1 each IVPB PRN PRN PRN Reason: Pharmacy to dose Miscellaneous Medication (Pharmacy To Dose) 1 each IVPB PRN PRN PRN Reason: Pharmacy to dose Multivitamins (Theragran) 1 tab PO DAILY [facility] Last Admin: 04/09/18 10:12 Dose: 1 tab Nystatin (Mycostatin) 500,000 units PO QID [facility] Last Admin: 04/09/18 20:13 Dose: 500,000 units Ondansetron HCl (Zofran Odt) 4 mg PO Q6H PRN PRN Reason: Nausea/Vomiting Last Admin: 04/04/18 10:50 Dose: 4 mg Ondansetron HCl (Zofran) 4 mg IVP Q6H PRN PRN Reason: Nausea/Vomiting Potassium Chloride (Klor-Con 10) 10 meq PO BID-[facility] Last Admin: 04/09/18 17:40 Dose: 10 meq Prednisone (Prednisone) 20 mg PO DAILY [facility] Last Admin: 04/09/18 10:12 Dose: 20 mg Saccharomyces Boulardii (Florastor) 250 mg PO DAILY [facility] Last Admin: 04/09/18 10:13 Dose: 250 mg Sodium Chloride (Flush - Normal Saline) 10 ml IVF Q12HR [facility] Last Admin: 04/09/18 20:13 Dose: 10 ml Sodium Chloride (Flush - Normal Saline) 10 ml IVF PRN PRN PRN Reason: Saline Flush Thiamine HCl (Thiamine) 100 mg PO DAILY [facility] Last Admin: 04/09/18 10:13 Dose: 100 mg Vancomycin HCl (First Vancomycin) 250 mg PO Q6H [facility] Last Admin: 04/09/18 20:14 Dose: 250 mg
[2018-04-10] MEDS: Vancomycin HCl 25 MG/ML Oral PO SCH ×4 (03:34→19:51)
[2018-04-10] MEDS: metroNIDAZOLE 500 MG in Premix Bag 1 BAG IVPB SCH ×3 (05:07→21:02)
--- NOTE | 2018-04-10 07:27 | ULT ---
RIGHT UPPER EXTREMITY DOPPLER VENOUS ULTRASOUND BLAIR SCALE AND DOPPLER COLOR FLOW IMAGING WITH SPECTRAL ANALYSIS PERFORMED OF THE DEEP VEIN SYSTEM OF THE RIGHT UPPER EXTREMITY: Date: 04/09/18 INDICATION: Right upper extremity edema, ecchymosis. FINDINGS: There is appropriate compressibility and flow within the imaged deep vein system of the right upper e xtremity without evidence of deep venous thrombosis. There is mild soft tissue edema. IMPRESSION: No deep venous thrombosis of the imaged right upper extremity. POS: C
[2018-04-10 08:29] LABS: #Eosinphils 0.1 thou/uL (0.0-0.7); #Lymphocytes 2.3 thou/uL (1.20-3.40); #Monocytes 0.9 thou/uL (0.11-0.59); #Neutrophils 7.4 thou/uL (1.40-6.50); %Basophils 0.3 % (0.0-1.0); %Eosinophils 0.7 % (0.0-10.0); %Lymphocytes 21.4 % (21.0-51.0); %Monocytes 8.7 % (0.0-10.0); %Neutrophils 68.9 % (42.0-75.0); Hemoglobin 8.7 g/dL (14.0-18.0); Mean Corpuscular HGB CONC 30.3 g/dL (32.0-36.0); Mean Corpuscular Hemoglobin 29.2 pg (27.0-31.0); Mean Corpuscular Volume 96.1 fL (78.0-98.0); Mean Platelet Volume 8.2 fL (7.4-10.4); Platelet Count 145 thou/uL (130-400); RBC Distribution Width 17.2 % (11.5-14.5); Red Blood Cell (RBC) Count 2.99 mill/uL (4.70-6.10); White Blood Cell (WBC) Count 10.7 thou/uL (4.8-10.8)
[2018-04-10 08:53] LABS: Anion Gap 13 mmol/L (10-20); BUN (Urea Nitrogen) 36 mg/dL (8.4-25.7); Calc. Creatinine Clearance 71 mL/min (70-130); Calcium 7.3 mg/dL (7.8-10.44); Carbon Dioxide 17 mmol/L (23-31); Chloride 116 mmol/L (98-107); Estimated GFR-MDRD 57; Glucose 77 mg/dL (83-110); Magnesium 1.4 mg/dL (1.6-2.6); Potassium 3.9 mmol/L (3.5-5.1); Sodium 142 mmol/L (136-145)
[2018-04-10] MEDS ORDERED: Magnesium Sulfate 4 GM in Sodium Chloride 0.9% 250 ML 250 ML IVPB SCH (09:00)
[2018-04-10] MEDS: Nystatin 100 MU/ML ML PO SCH ×4 (09:16→19:52)
[2018-04-10] MEDS: Saccharomyces boulardii 250 MG CAP PO SCH (09:17)
[2018-04-10] MEDS: Famotidine 20 MG TAB PO SCH (09:18)
[2018-04-10] MEDS: Multivit, Therapeutic 1 TAB PO SCH (09:18)
[2018-04-10] MEDS: Potassium Chloride 10 MEQ TAB PO SCH ×2 (09:18→17:10)
[2018-04-10] MEDS: Folic Acid 1 MG TAB PO SCH (09:18)
[2018-04-10] MEDS: predniSONE 20 MG TAB PO SCH (09:18)
[2018-04-10] MEDS: Acetaminophen 325 MG TAB PO PRN ×2 (11:15→22:29)
[2018-04-10] MEDS: Sodium Bicarbonate 100 MEQ in Dextrose 5% in Water 1,000 ML IV SCH (17:08)
--- NOTE | 2018-04-10 18:42 | PDOC.PN ---
- Subjective Encounter Start Date: 04/10/18 Encounter Start Time: 10:30 Patient seen and examined for USHA/Colitis/UTI. No new complaints. No overnight events - Objective Resuscitation Status - Order Detail: 04/04/18 02:04 Resuscitation Status Routine Resuscitation Status: FULL: Full Resuscitation MAR Reviewed: Yes Vital Signs & Weight: Vital Signs (12 hours) Temp Pulse Resp BP Pulse Ox 04/10/18 08:37 98.0 F 107 H 20 119/71 100 04/10/18 08:00 100 Weight Admit Weight 225 lb 1.6 oz Weight 242 lb 8.136 oz Most Recent Monitor Data Heart Rate from ECG 80 NIBP 102/59 NIBP BP-Mean 73 Respiration from ECG 0 SpO2 98 I&O: 04/09/18 04/10/18 04/11/18 06:59 06:59 06:59 Intake Total 720 540 420 Output Total 675 Balance 720 -135 420 Result Diagrams: 04/10/18 08:01 04/10/18 08:01 Additional Labs: Microbiology 04/04/18 17:30 Urine parker catheter Urine Culture - Final Klebsiella pneumoniae ssp pneu Laboratory Tests 04/09/18 04/10/18 09:03 08:01 Magnesium 1.2 L 1.4 L Phys Exam - Physical Examination Constitutional: NAD Respiratory: no wheezing, no rhonchi Cardiovascular: RRR, no rub Gastrointestinal: soft, non-tender, positive bowel sounds Neurological: moves all 4 limbs Dx/Plan - Plan IMPRESSION: 1. Sepsis with acute organ dysfunction. 2. Clostridium difficile colitis/ Klebsiella UTI 3. Physical deconditioning. 4. Benign prostatic hypertrophy. 5. Moderate protein-calorie malnutrition. 6. Metabolic acidosis secondary to renal failure. 7. USHA secondary to dehydration and poor oral intake. 8. Lactic acidosis. 9. Elevated inflammatory markers. 10. Multiple electrolyte abnormalities including hyponatremia, hyperkalemia, hypomagnessemia 11. Chronic anemia. 12. Obesity with a body mass index of 31.4. 13. Concern for aortic dissection. on Medical mngt 14. Pressure ulcer (Stage 2 mid back and Stage 4 sacral) present on admission. PLAN: Replace Magnessium DC IV Vancomycin Cont other Atbx ContD5 with bicarb to 50 ml/hr Cont wound care Cont other meds as below AM labs Cont supportive care DC to SNF in 1-2 days Reduce Prednisone dose Review of Systems - Review of Systems Respiratory: negative: Cough, Dry, Shortness of Breath, Hemoptysis, SOB with Excertion, Pleuritic Pain, Sputum, Wheezing Cardiovascular: negative: chest pain, palpitations, orthopnea, paroxysmal nocturnal dyspnea, edema, light headedness, other - Medications/Allergies Allergies/Adverse Reactions: Allergies Allergy/AdvReac Type Severity Reaction Status Date / Time No Known Drug Allergies Allergy Verified 10/02/13 02:54 Medications: Current Medications Acetaminophen (Tylenol) 650 mg PO Q4H PRN PRN Reason: Headache/Fever/Mild Pain (1-3) Last Admin: 04/10/18 11:15 Dose: 650 mg Famotidine (Pepcid) 20 mg PO QAM [facility] Last Admin: 04/10/18 09:18 Dose: 20 mg Folic Acid (Folvite) 1 mg PO DAILY [facility] Last Admin: 04/10/18 09:18 Dose: 1 mg Metronidazole 500 mg/ Device 100 mls @ 100 mls/hr IVPB Q8HR [facility] Last Admin: 04/10/18 14:35 Dose: 100 mls Levofloxacin 250 mg/ Device 50 mls @ 100 mls/hr IVPB Q2D@1800 [facility] Last Admin: 04/09/18 17:39 Dose: 50 mls Sodium Bicarbonate 100 meq/ (Dextrose/Water) 1,100 mls @ 50 mls/hr IV .Q22H [facility] Last Admin: 04/10/18 17:08 Dose: Not Given Vancomycin HCl 1 gm/ Device 200 mls @ 200 mls/hr IVPB Q36H [facility] Miscellaneous Medication (Pharmacy To Dose) 1 each IVPB PRN PRN PRN Reason: Pharmacy to dose Miscellaneous Medication (Pharmacy To Dose) 1 each IVPB PRN PRN PRN Reason: Pharmacy to dose Multivitamins (Theragran) 1 tab PO DAILY [facility] Last Admin: 04/10/18 09:18 Dose: 1 tab Nystatin (Mycostatin Susp) 500,000 unit PO QID [facility] Last Admin: 04/10/18 17:09 Dose: 1 syringe Ondansetron HCl (Zofran Odt) 4 mg PO Q6H PRN PRN Reason: Nausea/Vomiting Last Admin: 04/04/18 10:50 Dose: 4 mg Ondansetron HCl (Zofran) 4 mg IVP Q6H PRN PRN Reason: Nausea/Vomiting Potassium Chloride (Klor-Con 10) 10 meq PO BID-[facility] Last Admin: 04/10/18 17:10 Dose: 10 meq Prednisone (Prednisone) 20 mg PO DAILY [facility] Last Admin: 04/10/18 09:18 Dose: 20 mg Saccharomyces Boulardii (Florastor) 250 mg PO DAILY [facility] Last Admin: 04/10/18 09:17 Dose: 250 mg Sodium Chloride (Flush - Normal Saline) 10 ml IVF Q12HR [facility] Last Admin: 04/10/18 09:19 Dose: 10 ml Sodium Chloride (Flush - Normal Saline) 10 ml IVF PRN PRN PRN Reason: Saline Flush Thiamine HCl (Thiamine) 100 mg PO DAILY [facility] Last Admin: 04/10/18 09:18 Dose: 100 mg Vancomycin HCl (First Vancomycin) 250 mg PO Q6H [facility] Last Admin: 04/10/18 17:10 Dose: 250 mg
[2018-04-11] MEDS: Sodium Bicarbonate 100 MEQ in Dextrose 5% in Water 1,000 ML IV SCH (04:27)
[2018-04-11] MEDS: Vancomycin HCl 25 MG/ML Oral PO SCH ×3 (04:27→15:18)
[2018-04-11] MEDS: metroNIDAZOLE 500 MG in Premix Bag 1 BAG IVPB SCH ×2 (04:28→14:16)
[2018-04-11 04:55] LABS: #Basophils 0.1 thou/uL (0.0-0.2); #Eosinphils 0.1 thou/uL (0.0-0.7); #Lymphocytes 1.9 thou/uL (1.20-3.40); #Monocytes 0.9 thou/uL (0.11-0.59); %Basophils 0.8 % (0.0-1.0); %Eosinophils 0.6 % (0.0-10.0); %Lymphocytes 19.4 % (21.0-51.0); %Monocytes 9.2 % (0.0-10.0); Hemoglobin 8.7 g/dL (14.0-18.0); Mean Corpuscular HGB CONC 31.1 g/dL (32.0-36.0); Mean Corpuscular Hemoglobin 29.6 pg (27.0-31.0); Mean Corpuscular Volume 95.2 fL (78.0-98.0); Mean Platelet Volume 7.9 fL (7.4-10.4); Platelet Count 138 thou/uL (130-400); RBC Distribution Width 17.4 % (11.5-14.5); Red Blood Cell (RBC) Count 2.95 mill/uL (4.70-6.10)
[2018-04-11 05:24] LABS: Anion Gap 9 mmol/L (10-20); BUN (Urea Nitrogen) 29 mg/dL (8.4-25.7); Calc. Creatinine Clearance 80 mL/min (70-130); Calcium 7.5 mg/dL (7.8-10.44); Carbon Dioxide 23 mmol/L (23-31); Chloride 114 mmol/L (98-107); Estimated GFR-MDRD 65; Glucose 74 mg/dL (83-110); Magnesium 1.7 mg/dL (1.6-2.6); Potassium 3.5 mmol/L (3.5-5.1); Sodium 142 mmol/L (136-145)
[2018-04-11] MEDS: Famotidine 20 MG TAB PO SCH (07:53)
[2018-04-11] MEDS: Potassium Chloride 10 MEQ TAB PO SCH (07:53)
[2018-04-11] MEDS: Folic Acid 1 MG TAB PO SCH (07:53)
[2018-04-11] MEDS: Saccharomyces boulardii 250 MG CAP PO SCH (07:53)
[2018-04-11] MEDS: Multivit, Therapeutic 1 TAB PO SCH (07:53)
[2018-04-11] MEDS ORDERED: predniSONE 20 MG TAB PO SCH (08:00)
[2018-04-11 08:44] VITALS: BP 120/74; TEMP 98.1
[2018-04-11] MEDS ORDERED: Vancomycin HCl 1 GM in Premix Bag 1 BAG IVPB SCH (09:00)
[2018-04-11] MEDS ORDERED: Nystatin 500,000 UNITS/5 ML UDCUP PO SCH (13:00)
--- NOTE | 2018-04-11 19:05 | DIS ---
DATE OF ADMISSION: 04/03/2018 DATE OF DISCHARGE: 04/11/2018 DISCHARGE DISPOSITION: halfway facility at [facility]. ALLERGIES: NO KNOWN DRUG ALLERGIES. DISCHARGE MEDICATIONS: Tylenol as needed, Pepcid 20 mg daily, folic acid daily, Levaquin 500 mg daily for next seven days, Flagyl 500 mg three times daily until 20 April 2018, multivitamin one tab daily, potassium chloride 10 mEq daily, prednisone 10 mg daily to be discontinued on 16 April, Florastor 250 mg daily, thiamine 100 mg daily, oral vancomycin 250 mg every 6 hourly to be discontinued on April,, Tylenol as needed, repeat basic metabolic in 2 to 3 days is recommended. Please note that if the patient's potassium is normal, we can discontinue oral potassium supplementation. Creatinine on the day of discharge is 1.32. On admission, it was 7.9. The patient was seen and examined on the day of discharge. Denies any new complaints. No chest pain, shortness of breath, or palpitations reported. BRIEF HOSPITAL COURSE: The patient is a 72-year-old male with chronic deconditioning, sacral ulcer, hypertension, and colostomy, was brought in to the hospital with nausea, vomiting, and generalized weakness. Please refer to the history and physical dated March, for further details. The patient was admitted to the hospital with a diagnosis of sepsis with acute organ dysfunction along with C diff colitis, urinary tract infection as well as severe acute kidney injury and lactic acidosis. He was started on IV fluids. Nephrology team was following. His renal function improved with IV hydration. His creatinine on the day of discharge is 1.32 from 7.90 on admission. The patient also had significant metabolic acidosis along with lactic acidosis of 5.5 on admission. This improved with IV hydration. On admission, the patient underwent a noncontrast abdominal CT that was consistent with aortic dissection. The patient was seen by Cardiovascular, Dr. Bernardo. Please note, the patient has history of aortic dissection in November of this year requiring surgical intervention. Dr. Bernardo recommended patient to follow up with aortic team in [place]. Anticoagulants/antiplatelets were held due to this reason. The patient was also found to have C diff colitis and was started on oral vancomycin along with Flagyl. Diarrhea has significantly improved. The patient was also found to have Klebsiella pneumonia urinary tract infection, sensitive to Levaquin. He will continue Levaquin for another week or so. The patient received physical therapy and occupational therapy during this hospital stay. He will be discharged to senior living facility for further rehabilitation. He will require wound care. FINAL DIAGNOSES: 1. Sepsis with acute organ dysfunction secondary to Clostridium difficile colitis and Klebsiella urinary tract infection. 2. Acute kidney injury secondary to dehydration and poor oral intake. 3. Lactic acidosis/metabolic acidosis, secondary to renal failure. 4. Benign prostatic hypertrophy. 5. Physical deconditioning. 6. Elevated inflammatory markers. 7. Multiple electrolyte abnormalities including hyponatremia, hyperkalemia, hypokalemia, and hypomagnesemia. 8. Chronic anemia. 9. Obesity with a BMI of 31.4. 10. Concern for aortic dissection on medical management. 11. Stage II midback and stage IV sacral pressure ulcers present on admission. 12. Moderate protein-calorie malnutrition. 13. Relative adrenal insufficiency. Started on steroids. Steroids can probably be discontinued in next 3 to 4 days. Total time coordinating the discharge of this patient was 37 minutes. Job ID: [id number]
== END 2018-04-11 15:45 | DRG 871 ==
LOC: ERS 13:25 → 2NO 19:25 → CCU 04-04 17:15 → T4-A 04-06 22:47
PROVIDERS: ADMIT Emergency Medicine; ATTEND Emergency Medicine
DX: A41.89 Other specified sepsis (principal); L89.154 Pressure ulcer of sacral region, stage 4; I71.02 Dissection of abdominal aorta; E87.2 Acidosis; N17.9 Acute kidney failure, unspecified; A04.72 Enterocolitis due to Clostridium difficile, not specified as recurrent; N39.0 Urinary tract infection, site not specified; E44.0 Moderate protein-calorie malnutrition; E87.1 Hypo-osmolality and hyponatremia; B37.0 Candidal stomatitis; E27.49 Other adrenocortical insufficiency; L89.102 Pressure ulcer of unspecified part of back, stage 2; R65.20 Severe sepsis without septic shock; E87.5 Hyperkalemia; E86.0 Dehydration; I12.9 Hypertensive chronic kidney disease with stage 1 through stage 4 chronic kidney disease, or unspecified chronic kidney disease; N18.9 Chronic kidney disease, unspecified; D64.9 Anemia, unspecified; B96.1 Klebsiella pneumoniae [K. pneumoniae] as the cause of diseases classified elsewhere; E83.42 Hypomagnesemia; E66.9 Obesity, unspecified; D63.1 Anemia in chronic kidney disease; M19.90 Unspecified osteoarthritis, unspecified site; N40.0 Benign prostatic hyperplasia without lower urinary tract symptoms; Z68.31 Body mass index [BMI] 31.0-31.9, adult; Z93.3 Colostomy status; Z87.891 Personal history of nicotine dependence
CPT/HCPCS: 36415; 36416; 36556; 71045; 74176; 76775; 80048; 80053; 80202; 81001; 81003; 81015; 82533; 82607; 82746; 83605; 83735; 84100; 84484; 85007; 85025; 85027; 86140; 86850; 86900; 86901; 87040; 87077; 87086; 87149; 87186; 87324; 87449; 87493; 87804; 93005; 94760; 96361; 96365; 96367; 96375; 96376; J0696; J1720; J1956; J2405; J2543; J3370; J3475; J7042; J7050; J7070; J7506; Q0162

== ENCOUNTER 2018-07-05 16:31 | Inpatient (IN) | payer MEDICARE, MEDICAID ==
[~2018-07-05 16:31] MED LIST: ISOVUE-370 76%-LOCM 1 ML ONE
[2018-07-05 17:04] LABS: Hemoglobin 7.7 g/dL (14.0-18.0); Mean Corpuscular Hemoglobin 26.3 pg (27.0-31.0); Mean Corpuscular Volume 88.1 fL (78.0-98.0); Red Blood Cell (RBC) Count 2.91 mill/uL (4.70-6.10)
[2018-07-05 17:15] LABS: Band 2 % (5-11); Hypochromia SLIGHT = 6-15 cells (100X) (0-5/hpf); Lymphocytes 4 % (21-51); MDiff Complete? YES; Mean Corpuscular HGB CONC 29.8 g/dL (32.0-36.0); Mean Platelet Volume 7.7 fL (7.4-10.4); Monocytes 3 % (0-10); Neutrophil 91 % (42-75); Platelet Count 244 thou/uL (130-400); Platelet Morphology Comment Appears Adequate; RBC Distribution Width 17.6 % (11.5-14.5); Target Cells SLIGHT = 2-5 cells (100X) (0-1/hpf); White Blood Cell (WBC) Count 8.2 thou/uL (4.8-10.8)
[2018-07-05 17:18] LABS: ALT (SGPT) 25 U/L (8-55); AST (SGOT) 21 U/L (5-34); Albumin 1.5 g/dL (3.4-4.8); Alkaline Phosphatase 152 U/L (40-150); Anion Gap 9 mmol/L (10-20); BUN (Urea Nitrogen) 24 mg/dL (8.4-25.7); Bilirubin, Total 0.7 mg/dL (0.2-1.2); Calc. Creatinine Clearance 0 mL/min (70-130); Calcium 7.8 mg/dL (7.8-10.44); Carbon Dioxide 28 mmol/L (23-31); Chloride 98 mmol/L (98-107); Estimated GFR-MDRD 50; Globulin 4.1 g/dL (2.4-3.5); Glucose 114 mg/dL (83-110); Protein, Total 5.6 g/dL (5.8-8.1); Sodium 131 mmol/L (136-145)
[2018-07-05 17:30] LABS: Base Excess-Venous -0.2 mmol/L (-2.0 to 3.0); Bicarbonate (HCO3v) 26.5 mmol/L (22.0-28.0); CO2 Tension (PvCO2) 52.8 mmHg (40.0-50.0); Chloride 99 mmol/L (98-107); O2 Tension (PvO2) 22.5 mmHg (35.0-45.0); Potassium 4.3 mmol/L (3.5-5.1); Sodium 132 mmol/L (138-145); T. Carbon Dioxide 28.1 mmol/L (22.0-28.0); pH (Venous) 7.308 (7.320-7.430); vO2 Saturation-calc 32.5 % (60.0-85.0)
--- NOTE | 2018-07-05 17:48 | RAD ---
PORTABLE CHEST ONE VIEW 07/05/18 at 4:59 p.m. HISTORY: Pneumonia, pleural effusions. FINDINGS/IMPRESSION: Comparison made with exam of 06/30/18. The heart size is stable. There is a moderate right pleural effusion with associated basilar opacity. Left lung is clear. There are degenerative changes in the spine. POS: [facility]
--- NOTE | 2018-07-05 20:20 | CT ---
CTA CHEST WITH CONTRAST: 07/05/18 Multiple axial tomograms obtained through the chest with IV enhancement. INDICATIONS: Dyspnea. Comparison made to recent CT chest, 06/11/18. FINDINGS: Pulmonary arteries show adequate enhancement. No evidence of pulmonary embolus identified. The aortic dissection described previously is again noted. 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 There is decreased opacification in the false lumen today of uncertain significance. Bilateral pleural effusions are again noted, similar appearance to the prior exam. Right lung atelect asis again noted. The questioned mass density in the left lung base described previously is again see n and is unchanged in appearance. There is new infiltrate in the anterior left mid lung today when co mpared to the prior study. This involves left upper lobe. There is also new patchy infiltrate in the left lower lobe today. IMPRESSION: 1. No evidence of pulmonary embolus. 2. Type B thoracic aortic dissection is again noted. Aneurysmal dilatation of the descending tho racic aorta again noted. No significant interval change from recent exam. 3. Bilateral pleural effusions, larger on the right with the right lung basilar atelectasis, unc hanged from recent exam. 4. Question parenchymal mass in the left lung base described previously, unchanged. 5. New infiltrate in the anterior left upper lobe and patchy infiltrate in the left lower lobe s uggesting a new inflammatory process. POS: [facility]
[2018-07-05 20:50] LABS: Lactic Acid 3.1 mmol/L (0.5-2.2)
[2018-07-05] MEDS ORDERED: Piperacillin/Tazobactam 3.375 GM VIAL ONE (21:03)
[2018-07-05 23:13] LABS: Troponin I 0.018 ng/mL (< 0.028)
[2018-07-05] MEDS ORDERED: Acetaminophen 325 MG TAB PO PRN (23:42)
[2018-07-05] MEDS ORDERED: Ondansetron ODT 4 MG TAB SL PRN (23:42)
[2018-07-05] MEDS ORDERED: Sodium Chloride 0.9% 1,000 ML IV SCH (23:42)
[2018-07-05] MEDS ORDERED: Ondansetron PF 4 MG/2 ML Vial IVP PRN (23:42)
[2018-07-06 00:08] VITALS: BMI 29.8
[2018-07-06 02:03] LABS: Troponin I Less than 0.010 ng/mL (< 0.028)
--- NOTE | 2018-07-06 05:18 | HP ---
PRIMARY CARE DOCTOR: Patient goes to [facility]. CODE STATUS: Full code. TIME OF EVALUATION: 9:35 p.m. CHIEF COMPLAINT: Shortness of breath and wheezing. HISTORY OF PRESENT ILLNESS: This is a 73-year-old male patient, past medical history of hypertension, CAD, AFib, chronic back pain, and CHF, recently discharged from the hospital with pneumonia, came to the hospital after calling 911 because the patient was having severe shortness of breath. His saturation was found to be in the 50s with significant wheezings. No clear triggers, no alleviating factors. Patient improved with some nasal cannula oxygen needing 4 L/minute. By the time of my examination, vital signs are within normal range, except for the blood pressure has been in the 90s, however, patient reported that this is his regular blood pressure. He does not have any other signs and symptoms of hypoperfusion. Symptoms were severe. It seems that the patient might be having pneumonia, we will put him on antibiotics. REVIEW OF SYSTEMS: CONSTITUTIONAL: No fever or chills. Patient reported generalized weakness. RESPIRATORY: Patient had cough, scant sputum production, shortness of breath, wheezing. CARDIOVASCULAR: No chest pain or palpitation. Blood pressure in the low side was reported. GASTROINTESTINAL: Nausea. No vomiting, diarrhea, or abdominal pain. FISHER LOBSTER: No dizziness, headache, or feeling lightheaded. GENITOURINARY: No burning on urination. EXTREMITIES: No leg swelling. All other systems were reviewed and negative, except for the findings mentioned above. PAST MEDICAL HISTORY: As mentioned in the HPI. FAMILY HISTORY: Reviewed and non contributory for current presentation. SURGICAL HISTORY: Poor historian. Patient has colostomy bag in the left side and also right hip surgery. PSYCH HISTORY: Poor historian. SOCIAL HISTORY: Everyday smoker, half pack per day. Lives at home. No alcohol use. No drug use. No smoking history. KNOWN ALLERGIES: No known drug allergies reported. MEDICATIONS: 1. Metoclopramide. 2. Pantoprazole. 3. Potassium chloride. 4. Folic acid. 5. Finasteride. 6. Cefdinir. 7. Thiamine. 8. Furosemide. PHYSICAL EXAMINATION: VITAL SIGNS: On presentation, blood pressure initially in the 80s and recovered to the 90s and 100s, heart rate 91, respiratory rate was 21, and temperature 97.5. GENERAL APPEARANCE: The patient is alert and oriented, not in acute distress. HEENT: Eyes; normal conjunctivae. Moist oral mucosa. Anicteric. No JVD. RESPIRATORY: Bilateral air entry. Scattered rales. No wheezes. Symmetric expansion. CARDIOVASCULAR: Normal rate, blood pressure in the low side. Normal rhythm. No murmurs. No gallop. Bilateral leg edema. ABDOMEN: Soft. Normal bowel sounds. MUSCULOSKELETAL: Baseline range of motion and strength. No tenderness. SKIN: Warm, intact. No pallor. No rash. No redness, except for the bedsores in the right hip. Peripheral pulses are present. Capillary refill seems to be intact. NEUROLOGIC: No evidence of any new focal weakness. Baseline speech. Cranial nerves seem to be intact. PSYCH: Patient is in good mood. No anxiety. Optimal judgment. LABORATORY FINDINGS: EKG was reviewed. The patient has normal sinus rhythm with a rate of 90 with OK 200, QRS 110, QT corrected 489, left axis deviation, pulmonary disease pattern. Chest x-ray was reviewed. The patient had a heart size that is stable. There is a moderate right pleural effusion with associated basilar opacity. Left lung is clear. There are degenerative changes in the spine. The CT angio was reviewed, reported by Radiology with no evidence of pulmonary embolus, type B thoracic aortic dissection is again noted. Aneurysmal dilation of the descending thoracic aorta again noted. No significant interval change from recent exam. Bilateral pleural effusion large in the right with the right lung basilar atelectasis unchanged on recent exam, question parenchymal mass in the left lung described previously unchanged. New infiltrate noted in the left upper lobe, patchy infiltrate in the left lower lobe suggesting new inflammatory process. LABORATORY DATA: Reviewed. The patient has white count 8.2, hemoglobin 7.7, hematocrit 25.7, MCV 88, and platelet count 244. VBG was done and pH 7.30, pCO2 is 52, and PO2 is 22.5. Chemistry; sodium was 131 with potassium 4.0, anion gap 9, carbon dioxide 28, chloride 98, creatinine 1.65, the previous one was 1.44, GFR 50, glucose 114, lactic acid initially 2.7, the second one 3.1. LFTs were normal. Troponin was negative. Beta natriuretic peptide 354. Serum total protein 5.6, albumin 1.5, and globulin 4.1. ASSESSMENT AND PLAN: The patient will be placed in the hospital with the following medical problems. 1. Left upper lobe and left lower lobe pneumonia. This is new, was reported by Radiology, patient has been started on antibiotics, we will send cultures, we will adjust treatment as per sensitivity. 2. Chronic normocytic anemia: The hemoglobin is about the same from the previous labs, we will monitor, we will treat accordingly. 3. Hyponatremia. Sodium 131. This is mild, no need for any acute intervention at this point. 4. Chronic kidney disease, stage 3. We will monitor kidney function, we will treat accordingly. 5. History of hypertension, with blood pressure has been in the low side. Patient has no other symptoms of hypoperfusion. We will monitor, we will treat accordingly. 6. Chronic decubitus ulcer. We will consult the Wound Care. Seems to be clean. 7. History of aortic aneurysm dissection type B: This was present in previous admissions, seems to be unchanged as per CT scan report. 8. History of congestive heart failure as per report, seems to be diastolic with preserved ejection fraction, we will monitor for decompensation, probably chronic, seems to be stable at this point. 9. Deep venous thrombosis prophylaxis. SCDs. 10. Lactic acidosis. This could be likely secondary to underlying infection. 11. Left-sided pleural effusion. which is moderate, Dr. Andrews has been consulted. We will follow recommendations. Job ID: [id number] [facility]
[2018-07-06] MEDS ORDERED: Piperacillin/Tazobactam 4.5 GM in Sodium Chloride 0.9% 100 ML IVPB SCH (06:00)
[2018-07-06] MEDS ORDERED: Vancomycin HCl 1 GM in Premix Bag 1 BAG IVPB SCH (09:00)
[2018-07-06 09:06] LABS: Pleural Fluid, Protein 1.3 g/dL
[2018-07-06] MEDS: Finasteride 5 MG TAB PO SCH (09:06)
[2018-07-06] MEDS: Furosemide 40 MG/4 ML VIAL SLOW IVP SCH (09:06)
[2018-07-06] MEDS: Cefdinir 300 MG CAP PO SCH ×2 (09:06→20:05)
[2018-07-06 10:28] LABS: BF Color Yellow; Body Fluid Source Thoracentesis Fluid; Clarity Hazy (Clear)
[2018-07-06 10:29] LABS: BF WBC/Nonhematics Ct. - Manua 38 /cumm
[2018-07-06 10:30] LABS: BF RBC Count - Manual 1780 /cumm
[2018-07-06 10:32] LABS: BF Segmented Neutrophils 9 %; Cell Count Non Hematic 79 %; Lymphocytes 12 %
--- NOTE | 2018-07-06 10:41 | CON ---
DATE OF CONSULTATION: 07/06/2018 SERVICE: Pulmonary Medicine. INTERVAL HISTORY: The patient went home yesterday from the hospital. He was tried to convince to go to a residential facility. Ultimately, he got home, and was left in one position. He started having increasing shortness of breath. His saturations were in the mid 50s with significant wheezing and he was subsequently brought back to the hospital. He was tucked in the ICU overnight. At this point, I find without any conversational dyspnea. Denies any current chest pain, fevers, chills, nausea, or vomiting. He is not coughing up any phlegm. Otherwise, he is back to his usual state of health. PAST MEDICAL HISTORY: 1. Coronary artery disease. 2. Dyslipidemia. 3. Hypertension. 4. Atrial fibrillation. 5. Chronic systolic and diastolic heart failure. 6. Chronic back pain. PAST SURGICAL HISTORY: 1. Laparotomy with colostomy formation. 2. Right hip surgery. SOCIAL HISTORY: He smokes a half a pack on a daily basis and has greater than 50-pack year history of smoking. He currently lives at home. Denies any alcohol or illicit drug use. He has no exposure to chemicals, dust, asbestos, or tuberculosis. FAMILY HISTORY: Noncontributory. ALLERGIES: NO KNOWN DRUG ALLERGIES. MEDICATIONS: List of his inpatient medications was reviewed. Multiple updates were made. REVIEW OF SYSTEMS: General; head, ears, eyes, nose, throat; cardiovascular; respiratory; GI; ; musculoskeletal; neurologic; and skin are negative except as mentioned in the HPI. PHYSICAL EXAMINATION: VITAL SIGNS: Afebrile, pulse 100, blood pressure 119/57, respirations 14, and saturation 100% on 3 L nasal cannula. GENERAL: The patient is awake and alert, in no apparent distress. LUNGS: Decent air entry. Crackles are present. There is decreased air entry on the left and right bases. HEART: Normal rate and regular. ABDOMEN: Soft, nontender, and nondistended. Bowel sounds are positive. MUSCULOSKELETAL: No cyanosis or clubbing. There is diffuse pitting edema throughout. : No Montero catheter. NEUROLOGIC: Grossly nonfocal. LABORATORY DATA: WBC 8.2, hemoglobin 7.7, platelets 244,000. Neutrophil count is 91% on top of 2% bands. A pH 7.31, pCO2 of 53, pO2 of 22 on a VBG. Basic metabolic profile is essentially unremarkable, BNP 354, which is above where we were last time he was here. Troponin is negative x3. Liver function studies are essentially unremarkable. Creatinine 1.65, which is above his baseline of 1. IMAGING STUDIES: CTA of the chest demonstrates no evidence of pulmonary embolism. Type-B aortic dissection is present without interval change. Bilateral effusions. It is larger on the right with right lung base atelectasis. Possible mass in the left lung parenchyma. ASSESSMENT: 1. Acute hypoxic and hypercapnic respiratory failure. 2. Acute on chronic diastolic heart failure. 3. Community-acquired pneumonia, recent. 4. Acute kidney injury on chronic kidney disease, stage 3. 5. Pleural effusions, bilateral. 6. Severe protein calorie malnutrition. 7. Possible left lung mass. DISCUSSION AND PLAN: We will proceed with a thoracentesis. I will do a bedside ultrasound on both sides to make certain these spaces are not involved. My suspicion is the patient simply volume overloaded. We will start Lasix. I will interrupt his broad-spectrum antibiotics and simply put him back on his Omnicef. He has not failed previous therapy. From my perspective, he is once again stable for transition out of the ICU to the medical unit. 70 minutes have been devoted to this patient in various activities. I personally reviewed all imaging studies and laboratory data noted within this document. For fifty percent of this time, I was interacting with the patient at the bedside or coordinating care with the care team. For the remainder of the time I was immediately available to the patient in the hospital unit. Job ID: [id number] [facility]
[2018-07-06] MEDS ORDERED: Vancomycin HCl 750 MG in Sodium Chloride 0.9% 250 ML 250 ML IVPB SCH (12:00)
--- NOTE | 2018-07-06 14:20 | PDOC.PN ---
- Subjective Encounter Start Date: 07/06/18 Encounter Start Time: 10:00 Pt seen for followup re: pneumonia. says he feels better. - Objective Resuscitation Status - Order Detail: 07/06/18 04:15 Resuscitation Status Routine Resuscitation Status: FULL: Full Resuscitation MAR Reviewed: Yes Vital Signs & Weight: Vital Signs (12 hours) Temp Pulse Resp BP Pulse Ox 07/06/18 11:10 100 07/06/18 10:35 97.9 F 92 18 101/64 100 07/06/18 07:09 100 07/06/18 07:00 98.8 F 07/06/18 05:00 98.1 F Weight Weight 213 lb 13.574 oz Most Recent Monitor Data Heart Rate from ECG 87 NIBP 96/59 NIBP BP-Mean 71 Respiration from ECG 19 SpO2 100 I&O: 07/05/18 07/06/18 07/07/18 06:59 06:59 06:59 Intake Total 482 583 Output Total 475 400 Balance 7 183 Result Diagrams: 07/05/18 16:46 07/05/18 16:47 Additional Labs: Labs reviewed by me Phys Exam - Physical Examination Constitutional: NAD HEENT: moist MMs, sclera anicteric, oral pharynx no lesions, 2+ tonsils Neck: no nodes, no JVD, supple, full ROM Respiratory: clear to auscultation bilateral Cardiovascular: RRR, no rub S1, S2 Gastrointestinal: soft, non-tender, no distention, positive bowel sounds Neurological: moves all 4 limbs Psychiatric: normal affect Oriented to person and place, not to time Dx/Plan (1) Pneumonia Code(s): J18.9 - PNEUMONIA, UNSPECIFIED ORGANISM Status: Acute Comment: continue cefdinir (2) Pleural effusion Code(s): J90 - PLEURAL EFFUSION, NOT ELSEWHERE CLASSIFIED Status: Acute Comment: s/p thoracentesis (3) Stage 3 chronic kidney disease Code(s): N18.3 - CHRONIC KIDNEY DISEASE, STAGE 3 (MODERATE) Status: Chronic Comment: stable (4) Hyponatremia Code(s): E87.1 - HYPO-OSMOLALITY AND HYPONATREMIA Status: Chronic Comment: sodium 132 today, stable (5) Chronic anemia Code(s): D64.9 - ANEMIA, UNSPECIFIED Status: Chronic Comment: stable - Plan * . Review of Systems - Review of Systems Constitutional: negative: fever, chills, sweats, weakness, malaise Respiratory: Cough, Dry, SOB with Excertion. negative: Shortness of Breath, Hemoptysis, Pleuritic Pain, Sputum, Wheezing Cardiovascular: negative: chest pain, palpitations, orthopnea, paroxysmal nocturnal dyspnea, edema, light headedness Gastrointestinal: negative: Nausea, Vomiting, Abdominal Pain, Diarrhea, Constipation, Melena, Hematochezia Skin: negative: Rash, Lesions, Abebe, Bruising - Medications/Allergies Allergies/Adverse Reactions: Allergies Allergy/AdvReac Type Severity Reaction Status Date / Time No Known Drug Allergies Allergy Verified 07/06/18 07:32 Medications: Current Medications Cefdinir (Omnicef) 300 mg PO BID [facility] Stop: 07/09/18 09:01 Last Admin: 07/06/18 09:06 Dose: 300 mg Finasteride (Proscar) 5 mg PO DAILY [facility] Last Admin: 07/06/18 09:06 Dose: 5 mg Furosemide (Lasix) 40 mg SLOW IVP DAILY [facility] Last Admin: 07/06/18 09:06 Dose: 40 mg Pantoprazole Sodium (Protonix) 40 mg PO DAILY [facility] Last Admin: 07/06/18 09:06 Dose: 40 mg
--- NOTE | 2018-07-06 19:09 | OP ---
DATE OF PROCEDURE: 07/06/2018 SERVICE: Pulmonary Medicine. PROCEDURE PERFORMED: Right-sided pleural drainage with catheter insertion under ultrasound guidance. CONSENT: Risks and benefits of the procedure were discussed with the patient. All questions were answered and alternative options explained. STAFF PHYSICIAN: Jim Andrews MD MEDICATIONS: Lidocaine 1% without epinephrine, total quantity 8 mL. PREOPERATIVE DIAGNOSES: Pleural effusion. POSTPROCEDURE DIAGNOSES: Pleural effusion. DESCRIPTION OF PROCEDURE: Time-out was performed by the procedure team and patient. The patient was positively identified using name and date of . The procedure site was marked. Vital sign monitoring was accomplished by noninvasive hemodynamic monitoring, pulse oximetry, and telemetry. In the seated position, the right posterior hemothorax was examined using ultrasound probe. The diaphragm and pleural fluid were easily identified. The skin was prepped and draped in sterile fashion and anesthetized with 1% lidocaine without epinephrine. A finder needle was inserted in the pleural space with return of slightly opaque lisa fluid. A pleural drainage catheter was inserted in the same location and a total quantity of 700 mL of pleural fluid was withdrawn by syringe pump technique. A sample was sent for analysis. Evacuation of fluid was terminated because we arrived at -20 cm of water pressure. The intact catheter was withdrawn on exhalation, and a sterile dressing was applied. The patient had stable vitals throughout the entire procedure. ESTIMATED BLOOD LOSS: 2 mL. COMPLICATIONS: None. Job ID: [id number]
[2018-07-06] MEDS: Acetaminophen/Codeine 30-300mg Tablet PO PRN (20:36)
[2018-07-07 06:15] LABS: #Basophils 0.1 thou/uL (0.0-0.2); #Eosinphils 0.1 thou/uL (0.0-0.7); #Lymphocytes 1.7 thou/uL (1.20-3.40); #Neutrophils 4.1 thou/uL (1.40-6.50); %Basophils 0.8 % (0.0-1.0); %Eosinophils 0.8 % (0.0-10.0); %Lymphocytes 24.8 % (21.0-51.0); %Monocytes 14.3 % (0.0-10.0); %Neutrophils 59.3 % (42.0-75.0); Hemoglobin 6.6 g/dL (14.0-18.0); Mean Corpuscular HGB CONC 31.5 g/dL (32.0-36.0); Mean Corpuscular Hemoglobin 27.9 pg (27.0-31.0); Mean Corpuscular Volume 88.6 fL (78.0-98.0); Mean Platelet Volume 7.5 fL (7.4-10.4); Platelet Count 199 thou/uL (130-400); RBC Distribution Width 17.8 % (11.5-14.5); Red Blood Cell (RBC) Count 2.36 mill/uL (4.70-6.10)
[2018-07-07 06:23] LABS: Anion Gap 11 mmol/L (10-20); BUN (Urea Nitrogen) 20 mg/dL (8.4-25.7); Calc. Creatinine Clearance 71 mL/min (70-130); Calcium 7.2 mg/dL (7.8-10.44); Carbon Dioxide 24 mmol/L (23-31); Chloride 103 mmol/L (98-107); Estimated GFR-MDRD 66; Magnesium 1.3 mg/dL (1.6-2.6); Potassium 3.9 mmol/L (3.5-5.1); Sodium 134 mmol/L (136-145)
[2018-07-07 06:24] LABS: Phosphorus 3.2 mg/dL (2.3-4.7)
[2018-07-07 06:25] LABS: Glucose 56 mg/dL (83-110)
[2018-07-07] MEDS: Finasteride 5 MG TAB PO SCH (09:12)
[2018-07-07] MEDS: Cefdinir 300 MG CAP PO SCH ×2 (09:12→20:19)
[2018-07-07] MEDS: Furosemide 40 MG/4 ML VIAL SLOW IVP SCH ×2 (09:15→12:05)
[2018-07-07] MEDS: Acetaminophen/Codeine 30-300mg Tablet PO PRN ×3 (09:22→22:00)
[2018-07-07 10:25] LABS: Hemoglobin 6.7 g/dL (14.0-18.0)
--- NOTE | 2018-07-07 10:49 | PRG ---
DATE OF SERVICE: 07/07/2018 SUBJECTIVE: Jayson Christianson was just recently discharged from the hospital, presents with worsening respiratory distress. X-ray showed a large pleural effusion. Thoracentesis was done 700 ml fluid was drained, which is transudate with protein of 1.3. He said he is feeling better. OBJECTIVE: VITAL SIGNS: Saturations are 100% on 3 L, respirations 20, temperature 98, and blood pressure 90/56. CHEST: Bilateral rhonchi or crackles. CARDIAC: Normal S1 and S2. No gallops. ABDOMEN: No masses. LABORATORY DATA: White count 7000, hemoglobin and hematocrit 6 and 20, platelet count normal. Lytes are normal. Creatinine 1.29. ASSESSMENT: Azotemia, congestive heart failure, dementia, severe deconditioning , right pleural effusion, and possible lung mass. PLAN: Chest x-ray is being ordered. Otherwise, continue present treatment. Hopefully, he will be discharged back to the shelter in the next several days. Job ID: [id number] [facility]TDD
--- NOTE | 2018-07-07 11:44 | RAD ---
CHEST 1 VIEW: Date: 07/07/18 INDICATION: History of CHF. COMPARISON: Prior exam dated 07/05/18. FINDINGS: Cardiomegaly persists. Pulmonary vascular congestion is similar appearing. There is some improvement in bilateral pleural effusions, now small on the right and tiny on the left. Mild central edema patte rn persists. No pneumothorax is evident. IMPRESSION: Mild interval improvement in CHF. POS: C
--- NOTE | 2018-07-07 14:27 | PQF ---
CLINICAL DOCUMENTATION IMPROVEMENT CLARIFICATION FORM: ICD-10 Updated PLEASE DO AN ADDENDUM TO THE PROGRESS NOTE WITH ANY DOCUMENTATION UPDATES OR ADDITIONS AND CARRY THROUGH TO DC SUMMARY. THANK YOU. DATE: 07/07/18 ATTN: JOLENE Please exercise your independent, professional judgment in responding to the clarification form. Clinical indicators are provided on the bottom of this form for your review Please check appropriate box(s) to clarify if the following diagnosis has been ruled in or ruled out: "SEPSIS" ER NOTE: "SEPSIS" BP 85/44 LACTIC ACID 3.1 (07/05) PULSE 116 RISKS: PNEUMONIA TREATMENT: IV VANCOMYCIN (ER) IV ZOSYN (ER) IV FLUIDS (ER) OMNICEF (07/06-PRESENT) BLOOD CULTURES CULTURE OF PLEURAL FLUID CRITICAL CARE MONITORING PULMONARY CONSULTS In addition, please specify: Present on Admission (POA): [ ] Yes [ ] No [ ] Unable to determine For continuity of documentation, please document condition throughout progress notes and discharge summary. Thank You. [employer] (This form is maintained as a part of the permanent medical record) 2014 [employer]. All Rights Reserved ROCCO [email or web address] Office: [phone] [facility]
--- NOTE | 2018-07-07 16:41 | PDOC.PN ---
- Subjective Encounter Start Date: 07/07/18 Encounter Start Time: 08:40 Pt seen for followup re: pneumonia. Feels better. No chest pain, shortness of breath, fever or chills. - Objective Resuscitation Status - Order Detail: 07/06/18 04:15 Resuscitation Status Routine Resuscitation Status: FULL: Full Resuscitation Vital Signs & Weight: Vital Signs (12 hours) Temp Pulse Pulse Resp BP BP Pulse Ox 07/07/18 12:19 98.2 F 86 18 96/56 L 07/07/18 12:04 98.2 F 85 16 109/67 07/07/18 08:05 98.2 F 116 H 20 90/59 L 100 07/07/18 08:00 97 Weight Admit Weight 213 lb 13.574 oz Weight 213 lb 13.574 oz Most Recent Monitor Data Heart Rate from ECG 87 NIBP 96/59 NIBP BP-Mean 71 Respiration from ECG 19 SpO2 100 I&O: 07/06/18 07/07/18 07/08/18 06:59 06:59 06:59 Intake Total 482 1063 240 Output Total 475 430 Balance 7 633 240 Result Diagrams: 07/07/18 10:17 07/07/18 05:41 Additional Labs: Accuchecks 07/07/18 06:54 POC Glucose 60 L Phys Exam - Physical Examination Constitutional: NAD HEENT: moist MMs pallor Neck: supple Respiratory: clear to auscultation bilateral Cardiovascular: RRR Gastrointestinal: soft Neurological: moves all 4 limbs Psychiatric: normal affect Dx/Plan (1) Pneumonia Code(s): J18.9 - PNEUMONIA, UNSPECIFIED ORGANISM Status: Acute Comment: on cefdinir (2) Pleural effusion Code(s): J90 - PLEURAL EFFUSION, NOT ELSEWHERE CLASSIFIED Status: Acute Comment: s/p thoracentesis (3) Stage 3 chronic kidney disease Code(s): N18.3 - CHRONIC KIDNEY DISEASE, STAGE 3 (MODERATE) Status: Chronic Comment: stable (4) Hyponatremia Code(s): E87.1 - HYPO-OSMOLALITY AND HYPONATREMIA Status: Chronic Comment: sodium 134 today (5) Chronic anemia Code(s): D64.9 - ANEMIA, UNSPECIFIED Status: Chronic Comment: hemoglobin decreased, pt denies any bleeding, ? dilutional. Recheck and transfuse PRN (6) Sepsis Code(s): A41.9 - SEPSIS, UNSPECIFIED ORGANISM Status: Resolved Comment: present on admission, due to pneumonia - Plan * . Review of Systems - Review of Systems Respiratory: Cough. negative: Shortness of Breath, SOB with Excertion, Pleuritic Pain, Wheezing Cardiovascular: negative: chest pain, palpitations, orthopnea, paroxysmal nocturnal dyspnea, edema, light headedness - Medications/Allergies Allergies/Adverse Reactions: Allergies Allergy/AdvReac Type Severity Reaction Status Date / Time No Known Drug Allergies Allergy Verified 07/06/18 07:32 Medications: Current Medications Acetaminophen/Codeine Phosphate (Tylenol #3) 1 tab PO Q6H PRN PRN Reason: Pain Last Admin: 07/07/18 16:37 Dose: 1 tab Cefdinir (Omnicef) 300 mg PO BID [facility] Stop: 07/09/18 09:01 Last Admin: 07/07/18 09:12 Dose: 300 mg Finasteride (Proscar) 5 mg PO DAILY [facility] Last Admin: 07/07/18 09:12 Dose: 5 mg Furosemide (Lasix) 40 mg SLOW IVP DAILY [facility] Last Admin: 07/07/18 12:05 Dose: 40 mg Pantoprazole Sodium (Protonix) 40 mg PO DAILY [facility] Last Admin: 07/07/18 09:13 Dose: 40 mg
[2018-07-08] MEDS: Acetaminophen/Codeine 30-300mg Tablet PO PRN ×2 (06:06→19:33)
[2018-07-08 06:25] LABS: %Neutrophils 70.1 % (42.0-75.0); Mean Platelet Volume 7.7 fL (7.4-10.4); Platelet Count 180 thou/uL (130-400)
[2018-07-08 06:44] LABS: Phosphorus 3.7 mg/dL (2.3-4.7)
[2018-07-08 06:46] LABS: Anion Gap 8 mmol/L (10-20); BUN (Urea Nitrogen) 19 mg/dL (8.4-25.7); Calc. Creatinine Clearance 85 mL/min (70-130); Calcium 7.4 mg/dL (7.8-10.44); Carbon Dioxide 26 mmol/L (23-31); Chloride 103 mmol/L (98-107); Estimated GFR-MDRD 81; Glucose 82 mg/dL (83-110); Magnesium 1.3 mg/dL (1.6-2.6); Potassium 3.5 mmol/L (3.5-5.1); Sodium 133 mmol/L (136-145)
[2018-07-08 06:48] LABS: #Monocytes 0.9 thou/uL (0.11-0.59); #Neutrophils 4.7 thou/uL (1.40-6.50); %Basophils 0.4 % (0.0-1.0); %Eosinophils 0.6 % (0.0-10.0); %Lymphocytes 14.8 % (21.0-51.0); %Monocytes 14.1 % (0.0-10.0); Mean Corpuscular HGB CONC 31.1 g/dL (32.0-36.0); Mean Corpuscular Hemoglobin 27.8 pg (27.0-31.0); Mean Corpuscular Volume 89.3 fL (78.0-98.0); RBC Distribution Width 17.7 % (11.5-14.5); Red Blood Cell (RBC) Count 2.87 mill/uL (4.70-6.10); White Blood Cell (WBC) Count 6.6 thou/uL (4.8-10.8)
[2018-07-08] MEDS: Cefdinir 300 MG CAP PO SCH ×2 (09:02→20:23)
[2018-07-08] MEDS: Finasteride 5 MG TAB PO SCH (09:03)
--- NOTE | 2018-07-08 09:31 | PRG ---
DATE OF SERVICE: 07/08/2018 SUBJECTIVE: Jayson Christianson is a 73-year-old gentleman, this morning, he is better. He is going to go home. OBJECTIVE: VITAL SIGNS: Saturations are 92 L, temperature 97, pulse 80, respiratory rate 18, and blood pressure 190/74. CHEST: Bilateral rhonchi. CARDIAC: Normal S1 and S2. No gallops. ABDOMEN: No masses. LABORATORY DATA: Lytes are normal. Sodium 133, H and H of 8 and 25, white count normal. ASSESSMENT: 1. Status post thoracentesis, large pleural effusion. 2. Probably congestive heart failure, diastolic. I doubt he has significant pneumonia. 3. Advanced age with significant deconditioning. PLAN: 1. Probably can go back home with the help of home meds. Long-term prognosis is clearly poor. 2. PT supportive care. Job ID: [id number]
[2018-07-08] MEDS: Furosemide 20 MG TAB PO SCH (10:53)
--- NOTE | 2018-07-08 14:44 | PDOC.PN ---
- Subjective Encounter Start Date: 07/08/18 Encounter Start Time: 14:42 Pt seen for followup re: pneumonia. says he feels better. - Objective Resuscitation Status - Order Detail: 07/06/18 04:15 Resuscitation Status Routine Resuscitation Status: FULL: Full Resuscitation Vital Signs & Weight: Vital Signs (12 hours) Temp Pulse Pulse Pulse Resp BP BP 07/08/18 13:27 82 80 119/74 102/67 07/08/18 13:20 82 16 07/08/18 07:47 97.7 F 88 18 BP Pulse Ox Pulse Ox Pulse Ox 07/08/18 13:27 94 L 98 07/08/18 13:20 94 L 07/08/18 07:47 119/74 93 L Weight Admit Weight 213 lb 13.574 oz Weight 213 lb 13.574 oz Most Recent Monitor Data Heart Rate from ECG 87 NIBP 96/59 NIBP BP-Mean 71 Respiration from ECG 19 SpO2 100 I&O: 07/07/18 07/08/18 07/09/18 06:59 06:59 06:59 Intake Total 1063 2470 Output Total 430 130 Balance 633 2340 Result Diagrams: 07/08/18 05:38 07/08/18 05:38 Phys Exam - Physical Examination Constitutional: NAD HEENT: moist MMs Neck: supple Respiratory: clear to auscultation bilateral Cardiovascular: RRR Gastrointestinal: soft Neurological: moves all 4 limbs Psychiatric: normal affect Dx/Plan (1) Pneumonia Code(s): J18.9 - PNEUMONIA, UNSPECIFIED ORGANISM Status: Acute Comment: continue cefdinir (2) Acute respiratory failure with hypoxia Code(s): J96.01 - ACUTE RESPIRATORY FAILURE WITH HYPOXIA Status: Acute Comment: Pt needing supplemental oxygen to maintain sats in 90s. may need home oxygen at the time of discharge (3) Pleural effusion Code(s): J90 - PLEURAL EFFUSION, NOT ELSEWHERE CLASSIFIED Status: Acute Comment: s/p thoracentesis (4) Stage 3 chronic kidney disease Code(s): N18.3 - CHRONIC KIDNEY DISEASE, STAGE 3 (MODERATE) Status: Chronic Comment: stable (5) Hyponatremia Code(s): E87.1 - HYPO-OSMOLALITY AND HYPONATREMIA Status: Chronic Comment: sodium 133 today (6) Chronic anemia Code(s): D64.9 - ANEMIA, UNSPECIFIED Status: Chronic Comment: hemoglobin decreased again. FOBT -ve. Will recheck hemoglobin (7) Sepsis Code(s): A41.9 - SEPSIS, UNSPECIFIED ORGANISM Status: Resolved - Plan * . Likely home in 24-48 hours Review of Systems - Review of Systems Respiratory: Cough, SOB with Excertion, Sputum. negative: Dry, Shortness of Breath, Hemoptysis, Pleuritic Pain, Wheezing Gastrointestinal: negative: Nausea, Vomiting, Abdominal Pain, Diarrhea, Constipation, Melena, Hematochezia - Medications/Allergies Allergies/Adverse Reactions: Allergies Allergy/AdvReac Type Severity Reaction Status Date / Time No Known Drug Allergies Allergy Verified 07/06/18 07:32 Medications: Current Medications Acetaminophen/Codeine Phosphate (Tylenol #3) 1 tab PO Q6H PRN PRN Reason: Pain Last Admin: 07/08/18 06:06 Dose: 1 tab Albuterol/Ipratropium (Duoneb) 3 ml NEB [id number] [facility] Last Admin: 07/08/18 13:20 Dose: 3 ml Cefdinir (Omnicef) 300 mg PO BID [facility] Stop: 07/09/18 09:01 Last Admin: 07/08/18 09:02 Dose: 300 mg Finasteride (Proscar) 5 mg PO DAILY [facility] Last Admin: 07/08/18 09:03 Dose: 5 mg Furosemide (Lasix) 20 mg PO DAILY [facility] Last Admin: 07/08/18 10:53 Dose: 20 mg Pantoprazole Sodium (Protonix) 40 mg PO DAILY [facility] Last Admin: 07/08/18 09:03 Dose: 40 mg
[2018-07-09 07:29] VITALS: BP 105/64; TEMP 97.6
[2018-07-09 08:29] LABS: #Eosinphils 0.1 thou/uL (0.0-0.7); #Lymphocytes 1.4 thou/uL (1.20-3.40); #Monocytes 1.1 thou/uL (0.11-0.59); #Neutrophils 8.1 thou/uL (1.40-6.50); %Basophils 0.1 % (0.0-1.0); %Eosinophils 0.6 % (0.0-10.0); %Monocytes 10.3 % (0.0-10.0); Hemoglobin 7.7 g/dL (14.0-18.0); Mean Corpuscular HGB CONC 31.3 g/dL (32.0-36.0); Mean Corpuscular Hemoglobin 27.9 pg (27.0-31.0); Mean Corpuscular Volume 89.3 fL (78.0-98.0); Mean Platelet Volume 7.6 fL (7.4-10.4); Platelet Count 173 thou/uL (130-400); RBC Distribution Width 17.4 % (11.5-14.5); Red Blood Cell (RBC) Count 2.75 mill/uL (4.70-6.10); White Blood Cell (WBC) Count 10.7 thou/uL (4.8-10.8)
[2018-07-09] MEDS: Cefdinir 300 MG CAP PO SCH (08:35)
[2018-07-09] MEDS: Finasteride 5 MG TAB PO SCH (08:35)
[2018-07-09] MEDS: Furosemide 20 MG TAB PO SCH (08:35)
[2018-07-09 08:47] LABS: Anion Gap 8 mmol/L (10-20); BUN (Urea Nitrogen) 19 mg/dL (8.4-25.7); Calc. Creatinine Clearance 94 mL/min (70-130); Calcium 7.7 mg/dL (7.8-10.44); Carbon Dioxide 27 mmol/L (23-31); Chloride 102 mmol/L (98-107); Estimated GFR-MDRD Greater than 90; Glucose 79 mg/dL (83-110); Phosphorus 3.1 mg/dL (2.3-4.7); Potassium 3.5 mmol/L (3.5-5.1); Sodium 133 mmol/L (136-145)
--- NOTE | 2018-07-09 09:05 | PRG ---
DATE OF SERVICE: 07/09/2018 SUBJECTIVE: Jayson Christianson is better this morning, less shortness of breath and cough. Given schedule neb treatments yesterday. OBJECTIVE: VITAL SIGNS: Saturations are 98% on 3 L, pulse is 94, temperature 97, blood pressure _122\78 Chest: Bilateral rhonchi. CARDIAC: Normal S1, S2. No gallops. ABDOMEN: No masses. LABORATORY DATA: Lytes are normal. White count normal. IMPRESSION: Respiratory failure, congestive heart failure, bronchitis, probably underlying chronic obstructive pulmonary disease. His saturations were low , and prescribert o2 2l/min. I suggested getting neb treatments at home at least twice a day. Continue PT and supportive care. Job ID: [id number] MTDD
[2018-07-09] MEDS: Acetaminophen/Codeine 30-300mg Tablet PO PRN (10:29)
[2018-07-09] MEDS ORDERED: Magnesium 2 GM/50 ML 2 GM in Premix Bag 1 BAG IVPB SCH (10:30)
[2018-07-09 11:02] LABS: Hemoglobin 8.4 g/dL (14.0-18.0)
--- NOTE | 2018-07-09 14:06 | PDOC.EVN ---
Event Note - Event Note Event Note: Pt was admitted for pneumonia and COPD exacerbation. Pneumonia and COPD exacerbation resolved, pt continues to be hypoxic, needs home oxygen.
--- NOTE | 2018-07-09 15:18 | PDOC.EVN ---
Event Note - Event Note Event Note: Patient was admitted with pneumonia. Pneumonia has resolved but patient continues to be hypoxic. Will need home oxygen, arrangements being made.
--- NOTE | 2018-07-09 22:26 | DIS ---
DATE OF ADMISSION: 07/05/2018 DATE OF DISCHARGE: 07/09/2018 PRIMARY CARE PROVIDER: Jesús Nails. DISCHARGE DIAGNOSES: 1. Sepsis. 2. Acute hypoxic respiratory failure. 3. Pneumonia. 4. Pleural effusion. 5. Hyponatremia. 6. Chronic anemia. CONSULTATIONS DURING THIS HOSPITALIZATION: Pulmonary Critical Care Medicine, Dr. Andrews. DISCHARGE MEDICATIONS: 1. Tylenol No.3 p.r.n. 2. Proscar 5 mg daily. 3. Folic acid 1 mg daily. 4. Reglan 10 mg 4 times a day. 5. Protonix 40 mg daily. 6. Potassium chloride 10 mEq daily. 7. Folic acid 1 mg daily. 8. Lasix 20 mg daily. 9. DuoNeb 3 mL every 6 hours as needed. 10. Multivitamins one tablet daily. 11. Thiamine 100 mg daily. CONDITION OF PATIENT ON THE DAY OF DISCHARGE: Stable. I assessed Mr. Meghan Bocanegra on the day of discharge. He denies any chest pain or shortness of breath. S1 and S2 are heard, regular. Lungs are clear to auscultation bilaterally. HOSPITAL COURSE: Mr. Meghan Bocanegra is a pleasant 73-year-old gentleman, who was admitted to [facility] on 07/05/2018, following recent discharge from the hospital. Please refer to Dr. Jamison's history and physical note dated 07/06/2018. He was treated with antibiotics for sepsis and pneumonia. He was seen by Pulmonary Critical Care Medicine and underwent right-sided thoracentesis. Pathology report was negative for malignant cells. He is at high risk for readmission at this time. He was recommended [facility] facility placement. He made an informed decision to refuse [facility] facility after I discussed risks versus benefits of going to [facility] facility. The risks included worsening disease as well as . He is being discharged to home with home health. He was also hypoxic during this hospitalization. He will be going home on home oxygen. He had drop in hemoglobin during this hospitalization and received packed RBCs transfusion. Following that, his hemoglobin improved and remained stable. Fecal occult blood test was negative. On the day of discharge, he has hemoglobin 8.4 and hematocrit 26.7. Sodium is 133, potassium 3.5, and creatinine 0.97. He had a low magnesium of 1.2 and is receiving 2 g magnesium intravenously prior to discharge. Many thanks for allowing me to participate in your patient's care. Please feel free to contact me with any questions or concerns. DISCHARGE DESTINATION: Home. TOTAL AMOUNT OF TIME SPENT COORDINATING THIS DISCHARGE: 32 minutes. Job ID: [id number] MTDD
== END 2018-07-09 19:23 | disposition home or self-care (01) | DRG 871 ==
LOC: ERS 16:31 → CCU 22:00 → MERGE 22:00 → T4-B 07-06 10:56
PROVIDERS: ADMIT Hospitalist; ATTEND Hospitalist
PROC: 0W993ZZ Drainage of Right Pleural Cavity, Percutaneous Approach (ICD-10-PCS; principal; 2018-07-06)
PROC: 30233N1 Transfusion of Nonautologous Red Blood Cells into Peripheral Vein, Percutaneous Approach (ICD-10-PCS; 2018-07-07)
DX: A41.9 Sepsis, unspecified organism (principal); J18.9 Pneumonia, unspecified organism; J96.01 Acute respiratory failure with hypoxia; J96.02 Acute respiratory failure with hypercapnia; E43 Unspecified severe protein-calorie malnutrition; E87.1 Hypo-osmolality and hyponatremia; I13.0 Hypertensive heart and chronic kidney disease with heart failure and stage 1 through stage 4 chronic kidney disease, or unspecified chronic kidney disease; J90 Pleural effusion, not elsewhere classified; I50.42 Chronic combined systolic (congestive) and diastolic (congestive) heart failure; I25.10 Atherosclerotic heart disease of native coronary artery without angina pectoris; I48.91 Unspecified atrial fibrillation; G89.29 Other chronic pain; M54.9 Dorsalgia, unspecified; D64.9 Anemia, unspecified; N18.3 Chronic kidney disease, stage 3 (moderate); F17.210 Nicotine dependence, cigarettes, uncomplicated; F03.90 Unspecified dementia, unspecified severity, without behavioral disturbance, psychotic disturbance, mood disturbance, and anxiety; Z79.899 Other long term (current) drug therapy; Z93.3 Colostomy status; Z68.29 Body mass index [BMI] 29.0-29.9, adult
CPT/HCPCS: 36415; 36416; 36430; 71045; 71275; 80048; 80053; 82274; 82330; 82803; 82945; 83605; 83615; 83735; 83880; 83986; 84100; 84157; 84484; 85025; 85060; 86850; 86900; 86901; 87040; 87070; 87116; 87205; 87206; 88112; 88305; 89051; 93005; 94640; 94760; 96361; 96365; 96367; J1940; J2543; J3370; J3475; J3490; J7050; J7620; P9016; Q9966

== ENCOUNTER 2018-07-10 08:31 | Observation (INO) | payer MEDICARE, MEDICAID ==
--- NOTE | 2018-07-10 09:25 | RAD ---
PORTABLE CHEST: Date: 07/10/18 HISTORY: Atrial fibrillation. Chest and throat pain. COMPARISON: 07/07/18 exam. FINDINGS: Heart size appears enlarged. Parenchymal changes are again seen within the right base, which appear t o be related to a combination of pleural effusion, probably atelectasis. The parahilar markings are s lightly more prominent, particularly on the left. This could just be a manifestation of edema. The po ssibility of an infiltrate on the left side is not excluded. IMPRESSION: 1. Cardiomegaly with mild pulmonary vascular engorgement. 2. Stable appearance to right-sided pleural and parenchymal lung changes. 3. Increasing parahilar lung changes, particularly in the left parahilar region. Some of this could be a manifestation of edema, but is also compatible with some coexistent infiltrative lung change. POS: [facility]
[2018-07-10 09:46] LABS: #Monocytes 1.3 thou/uL (0.11-0.59); #Neutrophils 10.3 thou/uL (1.40-6.50); %Eosinophils 0.1 % (0.0-10.0); %Lymphocytes 8.2 % (21.0-51.0); %Monocytes 10.4 % (0.0-10.0); %Neutrophils 81.3 % (42.0-75.0); Hemoglobin 8.4 g/dL (14.0-18.0); Mean Corpuscular HGB CONC 30.8 g/dL (32.0-36.0); Mean Corpuscular Hemoglobin 27.5 pg (27.0-31.0); Mean Corpuscular Volume 89.3 fL (78.0-98.0); Mean Platelet Volume 7.9 fL (7.4-10.4); Platelet Count 174 thou/uL (130-400); RBC Distribution Width 18.1 % (11.5-14.5); Red Blood Cell (RBC) Count 3.04 mill/uL (4.70-6.10); White Blood Cell (WBC) Count 12.7 thou/uL (4.8-10.8)
[2018-07-10 10:03] LABS: ALT (SGPT) 21 U/L (8-55); AST (SGOT) 23 U/L (5-34); Albumin 1.5 g/dL (3.4-4.8); Alkaline Phosphatase 151 U/L (40-150); Anion Gap 9 mmol/L (10-20); BUN (Urea Nitrogen) 22 mg/dL (8.4-25.7); Bilirubin, Total 0.8 mg/dL (0.2-1.2); Calc. Creatinine Clearance 0 mL/min (70-130); Carbon Dioxide 28 mmol/L (23-31); Chloride 101 mmol/L (98-107); Estimated GFR-MDRD 79; Globulin 3.8 g/dL (2.4-3.5); Glucose 112 mg/dL (83-110); Potassium 3.8 mmol/L (3.5-5.1); Protein, Total 5.3 g/dL (5.8-8.1); Sodium 134 mmol/L (136-145)
[2018-07-10 11:03] LABS: Bilirubin Negative (Negative); Blood, Urine Large (Negative); Clarity TURBID (Clear); Glucose, Urine (Dipstick) Negative (Negative); Leukocyte Trace (Negative); Nitrite Negative (Negative); Protein, Urine (Dipstick) Trace mg/dL (Neg-Trace); Specific Gravity, Urine 1.019 (1.002-1.036); Urobilinogen 0.2 mg/dL (0.2-1.0); pH, Urine 5.5 (5.0-9.0)
[2018-07-10 11:05] LABS: Bacteria/HPF None Seen HPF (None Seen)
[2018-07-10 11:19] LABS: Hyaline Casts/LPF 4-6 HYALINE CAST LPF (0-3 Hyaline); Other Casts/LPF None Seen LPF (0-3 Hyaline); RBC/HPF GREATER THAN 50-TNTC HPF (0-3)
[2018-07-10] MEDS ORDERED: Cefdinir 300 MG CAP PO SCH (11:45)
[2018-07-10] MEDS ORDERED: HYDROcodone/Acetaminophen 5/325 mg Tablet ONE (12:20)
[2018-07-10] MEDS ORDERED: HYDROcodone/Acetaminophen 5/325 mg Tablet PO PRN ×2 (14:17)
[2018-07-10] MEDS ORDERED: Ondansetron ODT 4 MG TAB SL PRN (14:17)
[2018-07-10] MEDS ORDERED: Acetaminophen 325 MG TAB PO PRN ×3 (14:17→19:41)
[2018-07-10] MEDS ORDERED: Ondansetron PF 4 MG/2 ML Vial IVP PRN (14:17)
[2018-07-10] MEDS ORDERED: predniSONE 20 MG TAB PO SCH (18:15)
[2018-07-10] MEDS ORDERED: Furosemide 20 MG/2 ML VIAL SLOW IVP SCH (18:30)
--- NOTE | 2018-07-10 18:53 | HP ---
PRIMARY CARE PROVIDER: Jesús Nails. CHIEF COMPLAINT: Shortness of breath. HISTORY OF PRESENT ILLNESS: Mr. Meghan Ibrahim is a pleasant 73-year-old gentleman, who was seen at [facility] on 07/10/2018. He was discharged yesterday from this hospital after hospitalization from 07/05 to 07/09 for sepsis, acute hypoxic respiratory failure and pneumonia. He denies any cough or sputum. He denies any fevers or chills. He was discharged with home oxygen yesterday. He reports using oxygen at home. He reports that he felt short of breath for a few minutes at home. He was therefore brought to the emergency room. He reports that he feels well now. He denies any nausea or vomiting. He denies any fevers or chills. He denies any abdominal pain. REVIEW OF SYSTEMS: All other systems reviewed and found to be negative. PAST MEDICAL HISTORY: Hypertension, degenerative joint disease, sacral decubitus ulcer, COPD, pneumonia. PAST SURGICAL HISTORY: Colostomy. FAMILY HISTORY: Diabetes in his brother. He does not know about his parents. SOCIAL HISTORY: The patient is an ex-smoker. He denies alcohol use or recreational drug use. He is full code. Mr. Cruz is his surrogate decision maker. ALLERGIES: NO KNOWN DRUG ALLERGIES. HOME MEDICATIONS: As dictated on my discharge summary dated 07/09/2018. PHYSICAL EXAMINATION: GENERAL: On examination, Mr. Meghan Ibrahim is awake and alert, not in acute distress. VITAL SIGNS: Blood pressure is 119/74, pulse 96, respiratory rate 20, and oxygen saturation 96% on 2 L of oxygen. He is afebrile. EYES: No scleral icterus, no conjunctival pallor. ENT: Moist mucosal membranes. No oropharyngeal erythema or exudates. NECK: Supple, nontender, trachea is midline. RESPIRATORY: Accessory muscles of breathing are not active. Chest wall movements are symmetric bilaterally. Lungs are clear to auscultation, without wheeze, rhonchi, or crepitations. CARDIOVASCULAR: S1 and S2 are heard, regular. Peripheral pulses palpable. No carotid bruit. No pericardial rub. ABDOMEN: Soft, nontender, bowel sounds heard. He has left lower quadrant colostomy. NEUROLOGIC: Cranial nerves 2 through 12 intact, deep tendon reflexes 2+. MUSCULOSKELETAL: Power is 5/5 in all 4 extremities. SKIN: No rashes or subcutaneous nodules. LYMPHATIC: No cervical lymphadenopathy. PSYCHIATRIC: Normal mood, normal affect, the patient is oriented to person and place, not to time. LABORATORY DATA: Mr. Meghan Segura. Labs and investigations were reviewed. He has leukocytosis with 12,700 white cells, of which 81.3% are neutrophils, normocytic anemia with hemoglobin 8.4, normal platelet count, decreased sodium of 134, normal potassium, normal creatinine, elevated alkaline phosphatase of 151, it was 152 on 07/05/2018, decreased albumin of 1.5 and normal troponin-I. Lactic acid level is normal. Urinalysis is positive for blood and trace amount of leukocyte esterase. He also had chest x-ray, shows cardiomegaly with mild pulmonary vascular engorgement, stable appearance to right-sided pleural and parenchymal lung changes, increasing parahilar lung changes particularly in the left parahilar region. Some of this could be a manifestation of edema, but is also compatible with some coexistent infiltrate to lung change according to radiologist. ASSESSMENT AND PLAN: Mr. Meghan Ibrahim is a pleasant 73-year-old gentleman, who was seen at [facility] on 07/10/2018. His problem list includes: 1. Shortness of breath: The patient had transient shortness of breath, which he says is now resolved. This could be secondary to combination of volume overload as well as chronic obstructive pulmonary disease. He certainly does not appear to be in a chronic obstructive pulmonary disease exacerbation at this time. Given the concern over pulmonary infiltrate, we will start him on empiric antibiotics at this time. He denies any fevers. He denies any cough or sputum. We will start him on oral antibiotics. We will also continue his home Lasix dose and give a one time dose of intravenous Lasix. During both of his recent hospitalizations, the physicians discussed with him that he will likely benefit from [facility] facility. He has refused [facility] in the past. Today, he is agreeable to going to a [facility] facility for short duration. Case Management has been consulted. 2. Hypertension: We will continue his home medications, monitor vital signs, and titrate antihypertensives as needed. 3. Benign prostate hypertrophy: We will continue Proscar. Many thanks for allowing me to participate in your patient's care. Please feel free to contact me with any questions or concerns. LEVEL OF RISK: Moderate. LEVEL OF COMPLEXITY: Moderate. Job ID: [id number]
[2018-07-10] MEDS ORDERED: Furosemide 20 MG TAB PO SCH (19:00)
[2018-07-10] MEDS ORDERED: Furosemide 40 MG TAB PO SCH (19:15)
[2018-07-10] MEDS ORDERED: Bisacodyl 5 MG TAB PO PRN (19:41)
[2018-07-10] MEDS: Cefdinir 300 MG CAP PO SCH (20:02)
[2018-07-10] MEDS: Metoclopramide HCl 10 MG TAB PO SCH (20:03)
[2018-07-10] MEDS: Tamsulosin HCl 0.4 MG CAP PO SCH (20:03)
[2018-07-11 07:04] LABS: #Lymphocytes 1.4 thou/uL (1.20-3.40); #Monocytes 1.3 thou/uL (0.11-0.59); #Neutrophils 8.1 thou/uL (1.40-6.50); %Basophils 0.1 % (0.0-1.0); %Eosinophils 0.3 % (0.0-10.0); %Lymphocytes 12.9 % (21.0-51.0); %Monocytes 11.6 % (0.0-10.0); %Neutrophils 75.1 % (42.0-75.0); Hemoglobin 7.6 g/dL (14.0-18.0); Mean Corpuscular HGB CONC 31.3 g/dL (32.0-36.0); Mean Corpuscular Hemoglobin 27.8 pg (27.0-31.0); Mean Corpuscular Volume 88.6 fL (78.0-98.0); Mean Platelet Volume 7.9 fL (7.4-10.4); Platelet Count 161 thou/uL (130-400); RBC Distribution Width 18.3 % (11.5-14.5); Red Blood Cell (RBC) Count 2.74 mill/uL (4.70-6.10); White Blood Cell (WBC) Count 10.7 thou/uL (4.8-10.8)
[2018-07-11 07:18] LABS: Anion Gap 7 mmol/L (10-20); BUN (Urea Nitrogen) 25 mg/dL (8.4-25.7); Calc. Creatinine Clearance 72 mL/min (70-130); Calcium 7.8 mg/dL (7.8-10.44); Carbon Dioxide 28 mmol/L (23-31); Chloride 99 mmol/L (98-107); Estimated GFR-MDRD 67; Glucose 83 mg/dL (83-110); Potassium 3.7 mmol/L (3.5-5.1); Sodium 130 mmol/L (136-145)
[2018-07-11] MEDS: Acetaminophen/Codeine 30-300mg Tablet PO PRN ×2 (08:00→19:28)
[2018-07-11] MEDS ORDERED: predniSONE 20 MG TAB PO SCH (08:00)
[2018-07-11] MEDS: Saccharomyces boulardii 250 MG CAP PO SCH (08:01)
[2018-07-11] MEDS: Cefdinir 300 MG CAP PO SCH ×2 (08:01→20:28)
[2018-07-11] MEDS: Folic Acid 1 MG TAB PO SCH (08:02)
[2018-07-11] MEDS: Finasteride 5 MG TAB PO SCH (08:02)
[2018-07-11] MEDS: Potassium Chloride 10 MEQ TAB PO SCH (08:02)
[2018-07-11] MEDS: Metoclopramide HCl 10 MG TAB PO SCH ×4 (08:03→20:29)
[2018-07-11] MEDS: Thiamine 100 MG TAB PO SCH (08:03)
[2018-07-11] MEDS: Pantoprazole 40 MG GRANULES PACKET PO SCH (08:03)
[2018-07-11] MEDS: Multivit, Therapeutic 1 TAB PO SCH (08:03)
[2018-07-11] MEDS: Famotidine 20 MG TAB PO SCH (08:14)
[2018-07-11] MEDS ORDERED: Furosemide 20 MG TAB PO SCH (09:00)
[2018-07-11] MEDS ORDERED: Torsemide 20 MG TAB PO SCH (11:00)
[2018-07-11 14:50] VITALS: BMI 29.2
--- NOTE | 2018-07-11 15:44 | PDOC.PN ---
- Subjective Encounter Start Date: 07/11/18 Encounter Start Time: 10:43 Subjective: Readmitted on 07/10/2018 due to transient SOB which has resolved. -: Patient who declined SNF before going home 07/09/2018 now wants to go to SNF -: No new problem - Objective Resuscitation Status - Order Detail: 07/10/18 19:41 Resuscitation Status Routine Resuscitation Status: FULL: Full Resuscitation Discussed with: patient Vital Signs & Weight: Vital Signs (12 hours) Temp Pulse Resp BP Pulse Ox 07/11/18 14:38 95 16 07/11/18 07:52 97.6 F 99 16 117/67 98 07/11/18 07:01 100 07/11/18 06:58 92 16 07/11/18 04:55 98.9 F 89 20 106/63 98 Weight Admit Weight 224 lb 13.944 oz Weight 216 lb I&O: 07/10/18 07/11/18 07/12/18 06:59 06:59 06:59 Intake Total 850 Output Total 330 Balance 520 Result Diagrams: 07/11/18 06:43 07/11/18 06:43 Phys Exam - Physical Examination Constitutional: NAD obese HEENT: moist MMs fair air entry with bibasal crackles Cardiovascular: RRR Gastrointestinal: soft, non-tender, no distention, positive bowel sounds obese moderate bilateral leg edema Neurological: moves all 4 limbs awake and conversational but slow Dx/Plan (1) Fluid overload Code(s): E87.70 - FLUID OVERLOAD, UNSPECIFIED Status: Acute (2) Chronic CHF Code(s): I50.9 - HEART FAILURE, UNSPECIFIED Status: Acute Qualifiers: Heart failure type: diastolic Qualified Code(s): I50.32 - Chronic diastolic (congestive) heart failure (3) Physical deconditioning Code(s): R53.81 - OTHER MALAISE Status: Acute (4) Bilateral pulmonary infiltrates on CXR Code(s): R91.8 - OTHER NONSPECIFIC ABNORMAL FINDING OF LUNG FIELD Status: Acute (5) Bilateral pleural effusion Code(s): J90 - PLEURAL EFFUSION, NOT ELSEWHERE CLASSIFIED Status: Acute (6) Stage 3 chronic kidney disease Code(s): N18.3 - CHRONIC KIDNEY DISEASE, STAGE 3 (MODERATE) Status: Chronic Comment: stable (7) Hypomagnesemia Code(s): E83.42 - HYPOMAGNESEMIA Status: Acute (8) Hyponatremia Code(s): E87.1 - HYPO-OSMOLALITY AND HYPONATREMIA Status: Chronic Comment: sodium 133 today - Plan Substitute oral lasix with torsemide. -: Continue other treatments -: For discharge to SNF once arrangement is concluded. -: Monitor renal function and electrolytes * .
[2018-07-11] MEDS: Tamsulosin HCl 0.4 MG CAP PO SCH (20:29)
[2018-07-12 06:40] LABS: #Eosinphils 0.1 thou/uL (0.0-0.7); #Lymphocytes 1.2 thou/uL (1.20-3.40); #Monocytes 0.9 thou/uL (0.11-0.59); #Neutrophils 5.1 thou/uL (1.40-6.50); %Basophils 0.6 % (0.0-1.0); %Lymphocytes 16.4 % (21.0-51.0); %Monocytes 11.8 % (0.0-10.0); %Neutrophils 70.3 % (42.0-75.0); Mean Corpuscular Hemoglobin 28.3 pg (27.0-31.0); Mean Corpuscular Volume 88.5 fL (78.0-98.0); Mean Platelet Volume 8.1 fL (7.4-10.4); Platelet Count 159 thou/uL (130-400); RBC Distribution Width 18.4 % (11.5-14.5); Red Blood Cell (RBC) Count 2.46 mill/uL (4.70-6.10); White Blood Cell (WBC) Count 7.3 thou/uL (4.8-10.8)
[2018-07-12 06:58] LABS: Anion Gap 10 mmol/L (10-20); BUN (Urea Nitrogen) 28 mg/dL (8.4-25.7); Calc. Creatinine Clearance 73 mL/min (70-130); Calcium 7.5 mg/dL (7.8-10.44); Carbon Dioxide 26 mmol/L (23-31); Chloride 97 mmol/L (98-107); Estimated GFR-MDRD 68; Glucose 64 mg/dL (83-110); Potassium 3.9 mmol/L (3.5-5.1); Sodium 129 mmol/L (136-145)
[2018-07-12] MEDS: Folic Acid 1 MG TAB PO SCH (08:06)
[2018-07-12] MEDS: Pantoprazole 40 MG GRANULES PACKET PO SCH (08:06)
[2018-07-12] MEDS: Metoclopramide HCl 10 MG TAB PO SCH (08:06)
[2018-07-12] MEDS: Cefdinir 300 MG CAP PO SCH (08:06)
[2018-07-12] MEDS: Famotidine 20 MG TAB PO SCH (08:06)
[2018-07-12] MEDS: Multivit, Therapeutic 1 TAB PO SCH (08:06)
[2018-07-12] MEDS: Potassium Chloride 10 MEQ TAB PO SCH (08:06)
[2018-07-12] MEDS: Saccharomyces boulardii 250 MG CAP PO SCH (08:06)
[2018-07-12] MEDS: Thiamine 100 MG TAB PO SCH (08:06)
[2018-07-12] MEDS: Finasteride 5 MG TAB PO SCH (08:06)
[2018-07-12] MEDS: Acetaminophen/Codeine 30-300mg Tablet PO PRN (08:12)
[2018-07-12] MEDS ORDERED: Torsemide 20 MG TAB PO SCH (09:00)
--- NOTE | 2018-07-12 10:59 | PDOC.EVN ---
Event Note - Event Note Event Note: DC SUMMARY #[id number]
[2018-07-12 14:15] VITALS: BP 102/64; TEMP 97.8
--- NOTE | 2018-07-13 02:41 | DIS ---
DATE OF ADMISSION: 07/10/2018 DATE OF DISCHARGE: 07/12/2018 ADMITTING DIAGNOSES: 1. Shortness of breath. 2. Hypertension. 3. Degenerative joint disease. 4. Decubitus ulcer. 5. Chronic obstructive pulmonary disease. 6. Pneumonia. DISCHARGE DIAGNOSES: 1. Shortness of breath, resolved. 2. Pneumonia, resolved. 3. Hypertension, stable. 4. Degenerative joint disease, stable. 5. Decubitus ulcer, stable. 6. Chronic obstructive pulmonary disease, stable. HOSPITAL COURSE: This 73-year-old gentleman presented to the hospital with complaints of shortness of breath, sepsis, and hypoxia. The patient was found to have pneumonia and was started on antibiotics. At point in time of discharge, the patient was stable. White count normalized. No fevers and the patient reporting that he was back to his baseline and wanting to go home. Arrangements were made for shelter per patient's request. The patient was accepted at a shelter facility with and was to be seen by PCP within 1 week. The patient was seen and examined at length prior to discharge and was stable. Advised to follow up with PCP within 1 week. Given antibiotics for one week as well. Case and plan discussed with the patient at length. He understood and agreed with this plan. DISPOSITION: alf facility. ACTIVITY: As tolerated with assistance as needed. DIET: Low-fat, low-calorie, high-fiber diet. CONDITION: Stable. PROGNOSIS: Guarded. MEDICATIONS: See MAR. Case and plan was again discussed with the patient at length. He understood and agreed with this plan. Job ID: [id number]
== END 2018-07-12 15:56 ==
LOC: ERS 08:31 → T4-A 13:56
PROVIDERS: ADMIT Internal Medicine; ATTEND Internal Medicine
DX: R06.02 Shortness of breath (principal); I10 Essential (primary) hypertension; M19.90 Unspecified osteoarthritis, unspecified site; J18.9 Pneumonia, unspecified organism; J44.9 Chronic obstructive pulmonary disease, unspecified; N40.0 Benign prostatic hyperplasia without lower urinary tract symptoms; Z87.891 Personal history of nicotine dependence
CPT/HCPCS: 51702; 71045; 80048 ×2; 80053; 83605; 83735; 83880; 84484; 85025 ×3; 87040; 87086; 93005; 94640 ×3; 97139 ×2; 99285; G0378 ×3; 36415; 81003; 81015; J7620; J8597